=== PATIENT | female | born 1965 | race Caucasian/White ===

== ENCOUNTER 2017-07-28 13:18 | Emergency (ER) | payer BC ==
[2017-07-28 16:40] LABS: Hematocrit 38 % (35-47); Hemoglobin 12.1 g/dl (12.0-16.0); Mean Corpuscular HGB Conc 32 g/dl (31-36); Mean Corpuscular Hemoglobin 23 pg (27-31); Mean Corpuscular Volume 72 fL (80-97); Mean Platelet Volume 8 um3 (7.4-10.4); Platelet Count 198 10^3/ul (150-450); Red Cell Distribution Width 17 % (10.5-15); White Blood Count 13.9 10^3/ul (3.5-10.8)
[2017-07-28 16:52] LABS: INR 1.1 (0.77-1.02)
[2017-07-28 16:54] LABS: EGFR Non-African American 85.7 (>60)
[2017-07-28 17:33] LABS: Urine Appearance Clear; Urine Blood Negative (Negative); Urine Color Yellow; Urine Ketones Negative (Negative); Urine Protein 1+(30 mg/dL) (Negative); Urine Urobilinogen Positive (Negative)
[2017-07-28 18:04] LABS: Monocytes % 3 % (0-13)
--- NOTE | 2017-07-28 18:31 | RAD ---
Indication: Gastroesophageal reflux. Green emesis. Tobacco use. Comparison: December 08, 2016 chest radiograph and February 05, [address] Technique: RIGHT AP 1655 hours Report: Obesity limits image quality. Upper normal heart size. Prominent ill-defined central pulmonary vasculature and bilateral alveolar opacities and prominence of the interstitial markings. Grossly clear pleural spaces. Negative for pneumothorax. Negative for free air beneath the diaphragm. IMPRESSION: The constellation of findings favors cardiogenic pulmonary edema. Correlate with clinical assessment as bronchopneumonia could have a similar appearance.
[2017-07-28] MEDS ORDERED: Ondansetron ODT TAB* 4 MG SL PRN (19:30)
[2017-07-28] MEDS ORDERED: Al Hydrox/Mg Hydrox/Simet LIQ* 30 ML UDC PO ONE (19:30)
[2017-07-28] MEDS ORDERED: Lidocaine 2% VISCOUS* 15 ML UDC PO ONE (19:31)
[2017-07-28] MEDS ORDERED: SCOP/HYOS/ATR/PB(NF) 10 ML UDC PO ONE (19:31)
[2017-07-28] MEDS ORDERED: Ondansetron ODT TAB* 4 MG ONE (20:41)
[2017-07-28 21:37] VITALS: BP 173/81
--- NOTE | 2017-07-30 06:07 | ED ---
Bart Perez Gabriel, scribjoby for Yana Valenzuela MD on 07/28/17 at 1928 . GI/ HPI - HPI Summary HPI Summary: This patient is a 51 year old F presenting to [facility] accompanied by her brother with a chief complaint of GERD exacerbation that began 10 days ago. The patient rates the pain 2/10 in severity. Patient reports anxiety, green emesis, and HEAD. Patient denies difficulty breathing. The patient reports she has gas attacks. She started Prozac 2 weeks ago, takes Prilosec for GERD (BID), and takes a diuretic when she feels bloated. - History of Current Complaint Chief Complaint: EDGeneral Time Seen by Provider: 07/28/17 19:11 Stated Complaint: GENERAL ILLNESS Hx Obtained From: Patient Onset/Duration: Started Days Ago - 10, Still Present Timing: Constant Severity: Mild Current Severity: Mild Pain Intensity: 2 Associated Signs and Symptoms: Positive: Other: - anxiety, green emesis, and HEAD - Allergy/Home Medications Allergies/Adverse Reactions: Allergies Allergy/AdvReac Type Severity Reaction Status Date / Time Penicillins Allergy Severe Swelling Verified 02/04/15 21:47 PMH/Surg Hx/FS Hx/Imm Hx Endocrine/Hematology History: Reports: Hx Diabetes, Hx Thyroid Disease Cardiovascular History: Reports: Hx Congestive Heart Failure, Hx Hypertension - ON MEDICATION, Other Cardiovascular Problems/Disorders - hx of cardiomyopathy Respiratory History: Denies: Hx Asthma, Hx Chronic Obstructive Pulmonary Disease (COPD) GI History: Reports: Hx Gastroesophageal Reflux Disease Musculoskeletal History: Reports: Hx Arthritis - back, hands, feet Sensory History: Reports: Hx Contacts or Glasses Opthamlomology History: Reports: Hx Contacts or Glasses Infectious Disease History: No Infectious Disease History: Denies: Traveled Outside the [place] in Last 30 Days - Family History Known Family History: Positive: Cardiac Disease, Hypertension, Diabetes, Other - cancer Negative: Renal Disease, Seizure Disorder - Social History Alcohol Use: None Substance Use Type: Reports: None Smoking Status (MU): Former Smoker Amount Used/How Often: 1/2ppd Length of Time of Smoking/Using Tobacco: 17yrs total had stop period of time Have You Smoked in the Last Year: Yes Review of Systems Positive: Vomiting - that is green , Other - GERD Positive: Anxious All Other Systems Reviewed And Are Negative: Yes Physical Exam - Summary Physical Exam Summary: VITAL SIGNS: Reviewed. GENERAL: Patient is a morbidly obese female who is lying comfortable in the stretcher. Patient is not in any acute respiratory distress. HEAD AND FACE: No signs of trauma. No ecchymosis, hematomas or skull depressions. No sinus tenderness. EYES: PERRLA, EOMI x 2, No injected conjunctiva, no nystagmus. EARS: Hearing grossly intact. Ear canals and tympanic membranes are within normal limits. MOUTH: Oropharynx within normal limits. NECK: Supple, trachea is midline, no adenopathy, no JVD, no carotid bruit, no c- spine tenderness, neck with full ROM. CHEST: Symmetric, no tenderness at palpation LUNGS: decreased breath sounds bilaterally CVS: Regular rate and rhythm, S1 and S2 present, no murmurs or gallops appreciated. ABDOMEN: Soft with epigastric tenderness. No signs of distention. No rebound no guarding, and no masses palpated. Bowel sounds are normal. EXTREMITIES: FROM in all major joints, no edema, no cyanosis or clubbing. NEURO: Alert and oriented x 3. No acute neurological deficits. Speech is normal and follows commands. SKIN: Dry and warm Triage Information Reviewed: Yes Vital Signs On Initial Exam: Initial Vitals Temp Pulse Resp BP Pulse Ox 97.8 F 82 20 207/114 96 07/28/17 13:20 07/28/17 13:20 07/28/17 13:20 07/28/17 13:20 07/28/17 13:20 Vital Signs Reviewed: Yes - [place] Coma Scale Coma Scale Total: 15 Diagnostics - Vital Signs Vital Signs Temp Pulse Resp BP Pulse Ox 07/28/17 19:00 71 20 167/74 95 07/28/17 18:30 74 24 167/77 93 07/28/17 18:00 70 13 179/79 94 07/28/17 17:20 71 15 188/92 95 07/28/17 15:10 98.7 F 72 18 175/87 96 07/28/17 13:20 97.8 F 82 20 207/114 96 - Laboratory Lab Results: Lab Results 07/28/17 07/28/17 07/28/17 Range/Units 16:25 16:25 16:25 WBC (3.5-10.8) 10^3/ul RBC (4.0-5.4) 10^6/ul Hgb (12.0-16.0) g/dl Hct (35-47) % MCV (80-97) fL MCH (27-31) pg MCHC (31-36) g/dl RDW (10.5-15) % Plt Count (150-450) 10^3/ul MPV (7.4-10.4) um3 Immature Gran % (0-9) % Neutrophils % (38-83) % Band Neutrophils % (0-8) % Lymphocytes % (25-47) % Monocytes % (0-13) % Abs Neuts (Manual) (1.5-7.7) 10^3/ul Normal RBC Morphology Microcytosis Macrocytosis INR (Anticoag Therapy) 1.10 H (0.77-1.02) APTT 30.5 (26.0-36.3) seconds Sodium 135 (133-145) mmol/L Potassium 4.0 (3.5-5.0) mmol/L Chloride 99 L (101-111) mmol/L Carbon Dioxide 30 (22-32) mmol/L Anion Gap 6 (2-11) mmol/L BUN 10 (6-24) mg/dL Creatinine 0.72 (0.51-0.95) mg/dL Est GFR ( Amer) 110.3 (>60) Est GFR (Non-Af Amer) 85.7 (>60) BUN/Creatinine Ratio 13.9 (8-20) Glucose 149 H (70-100) mg/dL Lactic Acid (0.5-2.0) mmol/L Calcium 9.3 (8.6-10.3) mg/dL Magnesium 2.4 (1.9-2.7) mg/dL Total Bilirubin 1.70 H (0.2-1.0) mg/dL AST 19 (13-39) U/L ALT 14 (7-52) U/L Alkaline Phosphatase 67 (34-104) U/L Total Creatine Kinase 65 (10-223) U/L Troponin I 0.00 (<0.04) ng/mL C-Reactive Protein 24.24 H (< 5.00) mg/L B-Natriuretic Peptide 370 H ( - 100) pg/mL Total Protein 6.9 (6.4-8.9) g/dL Albumin 3.9 (3.2-5.2) g/dL Globulin 3.0 (2-4) g/dL Albumin/Globulin Ratio 1.3 (1-3) Amylase 19 L (29-103) U/L Lipase 65 (11.0-82.0) U/L Urine Color Urine Appearance Urine pH (5-9) Ur Specific Ceres (1.010-1.030) Urine Protein (Negative) Urine Ketones (Negative) Urine Blood (Negative) Urine Nitrate (Negative) Urine Bilirubin (Negative) Urine Urobilinogen (Negative) Ur Leukocyte Esterase (Negative) Urine WBC (Auto) (Absent) Urine RBC (Auto) (Absent) Ur Squamous Epith Cells (Absent) Urine Bacteria (Absent) Urine Glucose (Negative) 07/28/17 07/28/17 07/28/17 Range/Units 16:25 16:25 17:10 WBC 13.9 H (3.5-10.8) 10^3/ul RBC 5.30 (4.0-5.4) 10^6/ul Hgb 12.1 (12.0-16.0) g/dl Hct 38 (35-47) % MCV 72 L (80-97) fL MCH 23 L (27-31) pg MCHC 32 (31-36) g/dl RDW 17 H (10.5-15) % Plt Count 198 (150-450) 10^3/ul MPV 8 (7.4-10.4) um3 Immature Gran % 9 (0-9) % Neutrophils % 76 (38-83) % Band Neutrophils % 9 H (0-8) % Lymphocytes % 12 L (25-47) % Monocytes % 3 (0-13) % Abs Neuts (Manual) 11.8 H (1.5-7.7) 10^3/ul Normal RBC Morphology Not Reportable Microcytosis 1+ Macrocytosis 1+ INR (Anticoag Therapy) (0.77-1.02) APTT (26.0-36.3) seconds Sodium (133-145) mmol/L Potassium (3.5-5.0) mmol/L Chloride (101-111) mmol/L Carbon Dioxide (22-32) mmol/L Anion Gap (2-11) mmol/L BUN (6-24) mg/dL Creatinine (0.51-0.95) mg/dL Est GFR ( Amer) (>60) Est GFR (Non-Af Amer) (>60) BUN/Creatinine Ratio (8-20) Glucose (70-100) mg/dL Lactic Acid 0.9 (0.5-2.0) mmol/L Calcium (8.6-10.3) mg/dL Magnesium (1.9-2.7) mg/dL Total Bilirubin (0.2-1.0) mg/dL AST (13-39) U/L ALT (7-52) U/L Alkaline Phosphatase (34-104) U/L Total Creatine Kinase (10-223) U/L Troponin I (<0.04) ng/mL C-Reactive Protein (< 5.00) mg/L B-Natriuretic Peptide ( - 100) pg/mL Total Protein (6.4-8.9) g/dL Albumin (3.2-5.2) g/dL Globulin (2-4) g/dL Albumin/Globulin Ratio (1-3) Amylase (29-103) U/L Lipase (11.0-82.0) U/L Urine Color Yellow Urine Appearance Clear Urine pH 7.0 (5-9) Ur Specific Ceres 1.010 (1.010-1.030) Urine Protein 1+(30 mg/dl) H (Negative) Urine Ketones Negative (Negative) Urine Blood Negative (Negative) Urine Nitrate Negative (Negative) Urine Bilirubin Negative (Negative) Urine Urobilinogen Positive H (Negative) Ur Leukocyte Esterase Negative (Negative) Urine WBC (Auto) Trace(0-5/hpf) (Absent) Urine RBC (Auto) Trace(0-2/hpf) (Absent) Ur Squamous Epith Cells Present H (Absent) Urine Bacteria Absent (Absent) Urine Glucose Negative (Negative) Result Diagrams: 07/28/17 16:25 07/28/17 16:25 Lab Statement: Any lab studies that have been ordered have been reviewed, and results considered in the medical decision making process. - Radiology CXR Radiology Interpretation Completed By: Radiologist - The constellation of findings favors cardiogenic pulmonary edema. Correlate with clinical assessment as bronchopneumonia could have a similar appearance. ED physician has reviewed this radiology report. - EKG 16:32 Cardiac Rate: NL EKG Rhythm: Sinus Rhythm - at 77 BPM EKG Interpretation: Normal axis. Normal interval. No ischemic changes. Q waves in inferior lead Re-Evaluation - Re-Evaluation First Eval Re-Evaluation Time: 20:49 Change: Unchanged - Discussed CXR, she does not want to be admitted. She is on a diuretic she will go home and take follow up with PCP fabian and will get a cardiology consult for echo. GIGU Course/Dx - Course Assessment/Plan: This patient is a 51 year old F presenting to [facility] accompanied by her brother with a chief complaint of GERD exacerbation that began 10 days ago. The patient rates the pain 2/10 in severity. Patient reports anxiety, green emesis, and HEAD. Patient denies difficulty breathing. The patient reports she has gas attacks. She started Prozac 2 weeks ago, takes Prilosec for GERD (BID), and takes a diuretic when she feels bloated. An EKG reveals Normal axis. Normal interval. No ischemic changes. CXR reveals, per radiologist, The constellation of findings favors cardiogenic pulmonary edema. Correlate. with clinical assessment as bronchopneumonia could have a similar appearance. Test results with no significant abnormalities. In the ED course the patient was given Maalox, Zofran, and xylocaine. Patient will be discharged with prescription for Zofran and follow up from PCP. The patient is agreeable with this plan. - Diagnoses Provider Diagnoses: GERD (gastroesophageal reflux disease) Discharge - Discharge Plan Condition: Stable Disposition: HOME Prescriptions: Ondansetron [Zofran Odt] 8 mg PO TID PRN #20 tab PRN Reason: Nausea/Vomiting Ondansetron HCl [Zofran 8 MG TAB] 8 mg PO TID PRN #20 tab PRN Reason: Nausea/Vomiting Patient Education Materials: Ondansetron (By mouth), Gastroesophageal Reflux Disease (ED) Referrals: Andrew Alba MD [Primary Care Provider] - 2 Days Additional Instructions: Follow up with Dr. Alba and he should refer you to a engineer remote control diesel for an echo. RETURN TO EMERGENCY DEPARTMENT FOR ANY NEW OR WORSENING SYMPTOMS The documentation as recorded by the Bart sanderson Gabriel accurately reflects the service I personally performed and the decisions made by me, Yana Valenzuela MD.
== END 2017-07-28 21:36 | disposition home or self-care (01) ==
LOC: ED 13:18
DX: K21.9 Gastro-esophageal reflux disease without esophagitis (principal); R11.10 Vomiting, unspecified; F41.9 Anxiety disorder, unspecified; Z87.891 Personal history of nicotine dependence
CPT/HCPCS: 36415; 71045; 80053; 81003; 81015; 82150; 82550; 83605; 83690; 83735; 83880; 84484; 85025; 85610; 85730; 86140; 93005; 99283; A9270-GY

== ENCOUNTER 2017-12-03 10:26 | Inpatient (IN) | payer BC ==
[2017-12-03 12:02] LABS: ABS Basophils 0.1 10^3/ul (0-0.2); ABS Eosinophils 0.1 10^3/ul (0-0.6); ABS Monocytes 0.6 10^3/ul (0-0.8); ABS Neutrophils 15.7 10^3/ul (1.5-7.7); ABS Nucleated RBC 0 10^3/ul; Eosinophil % 0.6 % (0-6); Hematocrit 37 % (35-47); Hemoglobin 12.2 g/dl (12.0-16.0); Lymphocyte % 5.6 % (25-47); Mean Corpuscular HGB Conc 33 g/dl (31-36); Mean Corpuscular Hemoglobin 26 pg (27-31); Mean Corpuscular Volume 79 fL (80-97); Mean Platelet Volume 8.6 um3 (7.4-10.4); Nucleated Red Blood Cells % 0; Platelet Count 205 10^3/ul (150-450); Red Blood Count 4.72 10^6/ul (4.0-5.4); Red Cell Distribution Width 16 % (10.5-15); White Blood Count 17.4 10^3/ul (3.5-10.8)
[2017-12-03] MEDS ORDERED: Ondansetron INJ* 2 MG/ML VIAL IV ONE (12:04)
[2017-12-03] MEDS ORDERED: Morphine INJ* 10 MG/ML 1 ML CARPUJECT IV ONE (12:04)
[2017-12-03 12:20] LABS: EGFR Non-African American 78.2 (>60)
[2017-12-03] MEDS ORDERED: Morphine VIAL* 4 MG/ML VIAL (1 ml vial) IV ONE (12:26)
[2017-12-03] MEDS ORDERED: Ondansetron ODT TAB* 4 MG ONE (12:26)
[2017-12-03] MEDS ORDERED: Ondansetron ODT TAB* 4 MG PO ONE (12:55)
--- NOTE | 2017-12-03 13:12 | RAD ---
CLINICAL HISTORY: Right flank pain in a patient with a history of renal stones COMPARISON: Most recent CT examination is dated February 05, 2015 TECHNIQUE: Noncontrast CT examination of the abdomen and pelvis from the lung bases through the initial tuberosities. FINDINGS: VISUALIZED LUNG BASES: The visualized lung bases are grossly clear. There is no pleural effusion. ABDOMEN AND PELVIS: Evaluation of the solid organs and vasculature is limited without intravenous contrast. Overlying the right anterior abdominal wall there is appearance of a lipoma measuring up to 5.4 x 14 cm in the axial plane with multiple foci of coarse calcification. A fat-containing umbilical hernia is again seen. The liver is homogenously hypodense relative to the spleen. The liver measures 20 cm in greatest cephalocaudal dimension, slightly less than the previous CT examination. The spleen, pancreas and adrenal glands are grossly normal in appearance. The gallbladder is normal. The left kidney normal in appearance without focal mass, calcification or signs of hydronephrosis. Right kidney exhibits a mild degree of hydronephrosis. There are no obstructing calculi identified in the right ureter or in the urinary bladder. Evaluation of the gastrointestinal tract is limited without oral contrast. The small and large bowel are not distended.The patient's normal appendix is identified in the right lower quadrant measuring 5 mm in diameter (coronal image 52 and axial image 131) with gas in the lumen. There are rectosigmoid diverticula but no focal inflammatory change characteristic of diverticulitis. There is no gross retroperitoneal or mesenteric lymphadenopathy. The pelvic viscera is normal in appearance. The coarsely calcified abdominal aorta and iliac arteries are normal in course and diameter. Degenerative changes include multilevel loss of intervertebral disc height involving the lower thoracic and lumbar spine.There are no sinister bone lesions. IMPRESSION: 1. There is mild hydronephrosis of the right kidney with mild perinephric stranding but no obstructing renal calculi is identified. Images could be seen in the setting of recent passage of renal calculus. 2. Diverticulosis without focal inflammatory changes characteristic of diverticulitis. 3. Likely hepatic steatosis with mild splenomegaly. 4. Additional chronic and degenerative changes described in body the report unlikely to be directly related to the patient's current presentation.
[2017-12-03] MEDS ORDERED: cefTRIAXone(*) 1 GM in NS 0.9% 50 ML* 50 ML IVPB ONE (13:44)
[2017-12-03 14:05] LABS: Urine Appearance Cloudy; Urine Blood 3+ (Negative); Urine Color Amber; Urine Ketones 1+ (Negative); Urine Protein 1+(30 mg/dL) (Negative); Urine Specific Gravity 1.016 (1.010-1.030); Urine Urobilinogen Negative (Negative)
[2017-12-03] MEDS ORDERED: Morphine VIAL* 4 MG/ML VIAL (1 ml vial) IV PRN (16:46)
[2017-12-03] MEDS ORDERED: PROCHLORPERAZINE INJ 5 MG/ML 2 ML VIAL IV PRN (16:46)
[2017-12-03] MEDS ORDERED: Enoxaparin(*) 40 MG/0.4 ML SYR SUBCUT SCH (17:00)
[2017-12-03] MEDS ORDERED: Dextrose 50% Syringe 50 ML* 25 GM/50 ML SYRINGE IV PUSH PRN (17:30)
[2017-12-03] MEDS: Carvedilol TAB* 25 MG PO SCH ×2 (18:11→20:55)
[2017-12-03] MEDS: Ticagrelor* 90 MG TAB PO SCH ×2 (18:11→20:55)
[2017-12-03] MEDS: NS 0.9% 1000 ML* 1,000 ML IV SCH (18:11)
[2017-12-03] MEDS: Acetaminophen TAB* 325 MG PO PRN (21:09)
[2017-12-03] MEDS: Insulin LISPRO* 1 UNITS UNIT SUBCUT SCH (21:10)
--- NOTE | 2017-12-04 00:03 | HP ---
CC: Dr. Alba; Dr. Salmeron * HISTORY AND PHYSICAL: DATE OF ADMISSION: 12/03/17 TIME OF EVALUATION: 3:45 p.m. PRIMARY CARE PROVIDER: Dr. Alba. LOGISTICS LOSS PREVENTION MANAGER: Dr. Salmeron. CHIEF COMPLAINT: Right flank pain. HISTORY OF PRESENT ILLNESS: Ms. Shea is a 51-year-old lady with a past medical history of morbid obesity with a BMI of 54, diabetes, hypertension, history of viral cardiomyopathy, GERD, coronary artery disease status post stent who presents to the emergency room with complaints of right flank pain. She states that 5 days ago she started to have dysuria and urinary frequency. She suspected that she had a urinary tract infection, but did not seek medical attention during the weekend. On Thursday, she started to have intermittent hematuria and decided to see her primary care provider. In the meantime, she developed right flank pain with no radiation, described as [id number], associated with nausea and vomiting. She was seen at her primary care provider' s office, had a urine test performed and was diagnosed with urinary tract infection. Nitrofurantoin was prescribed and the patient did not chart picker the medication the same day. She started this antibiotic yesterday and took 2 doses with no significant improvement what prompted her visit to the emergency room today. She denies fever, chills, chest pain, palpitations, shortness of breath, or any other complaints not described above. She denies any prior history of nephrolithiasis, but has had uncomplicated urinary tract infections in the past. PAST MEDICAL HISTORY: 1. Morbid obesity with a BMI of 54. 2. Coronary artery disease. As per the patient's report, she had a stent placed to the LAD in August [address] Núñez at [facility]. She states that her RCA was totally occluded and no intervention was performed. She has been on aspirin and Brilinta since. 3. Type 2 diabetes. 4. Hypertension. 5. Hyperlipidemia. 6. GERD. 7. Prior history of viral cardiomyopathy. MEDICATION LIST: 1. Amlodipine 10 mg p.o. daily. 2. Aspirin 81 mg p.o. daily. 3. Atorvastatin 10 mg p.o. daily. 4. Bumetanide 1 mg p.o. daily. 5. Carvedilol 25 mg p.o. b.i.d. 6. Glyburide/metformin 2.5/500 one tablet p.o. b.i.d. 7. Levothyroxine 100 mcg p.o. daily. 8. Lisinopril 40 mg p.o. daily. 9. Nitrofurantoin 100 mg p.o. b.i.d. 10. Omeprazole 20 mg p.o. daily. 11. Brilinta 90 mg p.o. b.i.d. ALLERGIES: With PENICILLINS, the patient described reaction of swelling and with CLARITHROMYCIN, the patient has diarrhea. She received ceftriaxone in the emergency room with no untoward reaction. FAMILY HISTORY: Significant for strong family history of coronary artery disease. SOCIAL HISTORY: The patient has a history of tobacco abuse, half-a-pack of cigarettes and she is trying to quit. No history of alcohol or drug use. Surrogate decision maker is her brother, Emeka Shea, phone number [phone]. REVIEW OF SYSTEMS: A 14-point review of systems was performed and all the pertinent negative and positive findings are in the HPI. PHYSICAL EXAMINATION GENERAL: The patient is a pleasant, middle-aged morbidly obese lady, sitting up in a chair, in no acute distress. VITAL SIGNS: Temperature 97.0, heart rate is 78, respiratory rate is 16, oxygen saturation is 99% on room air, blood pressure is 168/91. HEENT: Pupils are equal. Moist mucous membranes. CHEST: Breath sounds present bilaterally with no added sounds. CVS: Normal S1, S2. Regular rate and rhythm. ABDOMEN: The patient was able to lie down on the ED stretcher, but abdominal examination is limited due to body habitus. There is no significant tenderness on palpation. Bowel sounds are present and there is right flank tenderness on percussion. EXTREMITIES: Mild bilateral lower extremity pitting edema. NEURO: She is alert, oriented x3. Able to move all 4 extremities. LABORATORY AND IMAGING DATA: The patient had a CBC that showed a WBC of 17.4, hemoglobin of 12.2, hematocrit of 37, platelets of 205, 90% neutrophils. Chemistry showed a sodium of 136, potassium of 4, chloride of 100, bicarb of 24 , BUN of 17, anion gap of 12, glucose of 186, calcium of 9.6, lactic acid of 1.4. LFTs are normal except for slight elevation of total bilirubin at 1.4. CRP is 43. Urinalysis showed 1+ protein, 1+ ketones, 3+ blood, 3+ LE, 3+ wbc's, 3+ rbc's, squamous epithelial cells are present, and 1+ urine bacteria. CT of the abdomen and pelvis showed mild hydronephrosis of the right kidney with mild perinephric stranding, but no obstructing renal calculi is identified. Images could be seen in the setting of recent passage of renal calculus. Diverticulosis without focal inflammatory changes characteristic of diverticulitis. Likely hepatic steatosis with mild splenomegaly. ASSESSMENT AND PLAN: Ms. Shea is a 51-year-old lady with a past medical history of morbid obesity, coronary artery disease, status post stent, hypertension, hyperlipidemia, type 2 diabetes, who presents to the emergency room with complaints of flank pain, dysuria and urinary frequency, found to have pyelonephritis. 1. Sepsis. The patient has leukocytosis and I believe she is not tachycardic at this time because she is on a beta-cliff. Source is pyelonephritis. There is no evidence of severe sepsis or septic shock at this time. 2. Pyelonephritis. We are going to obtain the urine culture the patient had done as an outpatient. I suspect the urine culture sent here will probably be negative as she was already taking antibiotics as an outpatient. In the meantime, she will be continued on IV fluids and ceftriaxone. She will receive symptomatic treatment for her pain and nausea. 3. Hypertension. I am going to continue her amlodipine, carvedilol, and lisinopril with holding parameters. 4. Coronary artery disease, appears to be stable. I am going to obtain records from [facility] regarding her cardiac cath and last visit with Dr. Salmeron. 5. Type 2 diabetes. I am going to hold her glyburide/metformin in the setting of acute infection. She is going to have fingersticks a.c. and h.s. with a lispro sliding scale and she may require low dose Lantus depending on her glucose. 6. Hyperlipidemia. Continue atorvastatin. 7. DVT prophylaxis: The patient has a score of 2 and she will be started on subcutaneous heparin. 8. Code status is full. TIME SPENT: Approximately 50 minutes was spent with the patient's interview, medical records review, physical examination to complete this admission, more than half of this time was spent [id number] with the patient and coordination of care. [id number]/[facility] #: [id number] JENNI
[2017-12-04] MEDS: NS 0.9% 1000 ML* 1,000 ML IV SCH (04:12)
[2017-12-04] MEDS ORDERED: Levothyroxine TAB* 100 MCG TAB PO SCH (06:00)
[2017-12-04 06:31] LABS: ABS Basophils 0.1 10^3/ul (0-0.2); ABS Eosinophils 0.2 10^3/ul (0-0.6); ABS Lymphocytes 2.2 10^3/ul (1.0-4.8); ABS Monocytes 0.7 10^3/ul (0-0.8); ABS Neutrophils 8.3 10^3/ul (1.5-7.7); ABS Nucleated RBC 0 10^3/ul; Eosinophil % 2.1 % (0-6); Hematocrit 34 % (35-47); Hemoglobin 11.2 g/dl (12.0-16.0); Mean Corpuscular HGB Conc 33 g/dl (31-36); Mean Corpuscular Hemoglobin 26 pg (27-31); Mean Corpuscular Volume 79 fL (80-97); Mean Platelet Volume 8.7 um3 (7.4-10.4); Nucleated Red Blood Cells % 0; Platelet Count 184 10^3/ul (150-450); Red Blood Count 4.25 10^6/ul (4.0-5.4); Red Cell Distribution Width 16 % (10.5-15); White Blood Count 11.4 10^3/ul (3.5-10.8)
[2017-12-04 06:39] LABS: EGFR Non-African American 87.1 (>60)
--- NOTE | 2017-12-04 07:40 | ED ---
Bart Perez Gabriel, scribed for Shorty Thacker MD on 12/03/17 at 1157 . Abdominal Pain/Male - HPI Summary HPI Summary: This patient is a 51 year old F presenting to [facility] with a chief complaint of right flank pain that began yesterday morning. The patient rates the pain 8/10 in severity and states it radiates into her ABD. Patient reports nausea, hematuria, dysuria, diaphoresis, and chills. Pt is on abx for her current UTI, she states the pain feels similar to a prior kidney stone. Cardiac stent placed aug 2017 - History of Current Complaint Chief Complaint: EDFlankPain Stated Complaint: N/V,RT FLANK PAIN Time Seen by Provider: 12/03/17 11:28 Hx Obtained From: Patient Onset/Duration: Still Present Timing: Constant Severity Initially: Severe Severity Currently: Severe Pain Intensity: 8 Pain Scale Used: 0-10 Numeric Location: Flank - r Radiates: No Associated Signs And Symptoms: Positive: Nausea - Allergies/Home Medications Allergies/Adverse Reactions: Allergies Allergy/AdvReac Type Severity Reaction Status Date / Time clarithromycin Allergy Diarrhea Verified 12/03/17 11:42 penicillin G Allergy Swelling Verified 12/03/17 11:42 Home Medications: Home Medications Aspirin EC TAB* [Ecotrin EC Low Dose 81 MG*] 81 mg PO QAM 12/03/17 [History Confirmed 12/03/17] Atorvastatin* [Lipitor*] 10 mg PO DAILY 12/03/17 [History Confirmed 12/03/17] Bumetanide TAB* [Bumex 1 MG TAB*] 1 mg PO DAILY 12/03/17 [History Confirmed 05/13] Carvedilol TAB* [Coreg TAB*] 25 mg PO BID 12/03/17 [History Confirmed 12/03/17] Glyburid/Metformin 2.5/500(NF) [Glucovance (NF)] 1 tab PO BID 12/03/17 [History Confirmed 12/03/17] Levothyroxine TAB* [Synthroid TAB*] 100 mcg PO DAILY 12/03/17 [History Confirmed 12/03/17] Lisinopril TAB* [Prinivil TAB*] 40 mg PO DAILY 12/03/17 [History Confirmed 12/03] Nitrofurantoin Monohyd/M-Cryst [Macrobid 100 mg Capsule] 100 mg PO BID 12/03/17 [History Confirmed 12/03/17] Omeprazole CAP* [Prilosec CAP* 20 MG] 20 mg PO DAILY 12/03/17 [History Confirmed 12/03/17] Ticagrelor* [Brilinta*] 90 mg PO BID 12/03/17 [History Confirmed 12/03/17] amLODIPine TAB* [Norvasc 5 mg TAB*] 10 mg PO DAILY 12/03/17 [History Confirmed 12/03/17] PMH/Surg Hx/FS Hx/Imm Hx Endocrine/Hematology History: Reports: Hx Diabetes, Hx Thyroid Disease Cardiovascular History: Reports: Hx Congestive Heart Failure, Hx Hypertension - ON MEDICATION, Other Cardiovascular Problems/Disorders - hx of cardiomyopathy Respiratory History: Denies: Hx Asthma, Hx Chronic Obstructive Pulmonary Disease (COPD) GI History: Reports: Hx Gastroesophageal Reflux Disease Musculoskeletal History: Reports: Hx Arthritis - back, hands, feet Sensory History: Reports: Hx Contacts or Glasses Opthamlomology History: Reports: Hx Contacts or Glasses Infectious Disease History: No Infectious Disease History: Denies: Traveled Outside the [place] in Last 30 Days - Family History Known Family History: Positive: Cardiac Disease, Hypertension, Diabetes, Other - cancer Negative: Renal Disease, Seizure Disorder - Social History Alcohol Use: None Substance Use Type: Reports: None Smoking Status (MU): Former Smoker Amount Used/How Often: 1/2ppd Length of Time of Smoking/Using Tobacco: 17yrs total had stop period of time Have You Smoked in the Last Year: Yes Review of Systems Positive: Chills, Skin Diaphoresis. Negative: Fever Negative: Erythema Negative: Sore Throat Negative: Chest Pain Negative: Shortness Of Breath, Cough Positive: Abdominal Pain, Nausea Positive: dysuria, flank pain - r, hematuria Negative: Myalgia, Edema Negative: Rash Neurological: Negative - dizziness All Other Systems Reviewed And Are Negative: Yes Physical Exam - Summary Physical Exam Summary: Constitutional: Well-developed, obese, in moderate pain distress Skin: Warm, Dry HENT: Normocephalic; Atraumatic Eyes: Conjunctiva normal Neck: Musculoskeletal ROM normal neck. (-) JVD, (-) Stridor, (-) Tracheal deviation Cardio: Rhythm regular, rate normal, Heart sounds normal; Intact distal pulses; The pedal pulses are 2+ and symmetric. Radial pulses are 2+ and symmetric. (-) Murmur Pulmonary/Chest wall: Effort normal. (-) Respiratory distress, (-) Wheezes, (-) Rales Abd: Soft, (-) Tenderness, (-) Distension, (-) Guarding, (-) Rebound Musculoskeletal: (-) Edema Lymph: (-) Cervical adenopathy Neuro: Alert, Oriented x3 Psych: Mood and affect Normal Triage Information Reviewed: Yes Vital Signs On Initial Exam: Initial Vitals Temp Pulse Resp BP Pulse Ox 97 F 78 16 168/91 99 12/03/17 10:28 12/03/17 10:28 12/03/17 10:28 12/03/17 10:28 12/03/17 10:28 Vital Signs Reviewed: Yes Diagnostics - Vital Signs Vital Signs Temp Pulse Resp BP Pulse Ox 12/03/17 10:28 97 F 78 16 168/91 99 - Laboratory Result Diagrams: 12/03/17 11:46 12/03/17 11:39 Lab Statement: Any lab studies that have been ordered have been reviewed, and results considered in the medical decision making process. - Radiology CT ABD/Pelvis Radiology Interpretation Completed By: Radiologist - 1. There is mild hydronephrosis of the right kidney with mild perinephric stranding but no obstructing renal calculi is identified. Images could be seen in the setting of recent passage of renal calculus. 2. Diverticulosis without focal inflammatory changes characteristic of diverticulitis. 3. Likely hepatic steatosis with mild splenomegaly. 4. Additional chronic and degenerative changes described in body the report unlikely to be directly related to the patient's current presentation. ED physician has reviewed this radiology report. Re-Evaluation - Re-Evaluation First Eval Re-Evaluation Time: 15:32 Change: Unchanged Comment: I updated the patient with the plan of care. Abdominal Pain Fem Course/Dx - Course Assessment/Plan: This patient is a 51 year old F presenting to [facility] with a chief complaint of right flank pain that began yesterday morning. The patient rates the pain 8/10 in severity and states it radiates into her ABD. Patient reports nausea, hematuria, dysuria, diaphoresis, and chills. Pt is on abx for her current UTI, she states the pain feels similar to a prior kidney stone. Cardiac stent placed aug 2017. CT ABD/Pelvis reveals, per radiologist, 1. There is mild hydronephrosis of the right kidney with mild perinephric stranding but no. obstructing renal calculi is identified. Images could be seen in the setting of recent. passage of renal calculus. 2. Diverticulosis without focal inflammatory changes characteristic of diverticulitis. 3. Likely hepatic steatosis with mild splenomegaly. 4. Additional chronic and degenerative changes described in body the report unlikely to be. directly related to the patient's current presentation. Test results with no significant abnormalities except for a glucose of 186 and WBC 17.4. In the ED course the patient was given zofran and morphine. We discussed patient care with Dr. Geiger and they agreed to admit the patient. The patient will be admitted because her outpatient treatment is failing due to her DM. Patient will be admitted. The patient is agreeable with this plan. - Diagnoses Provider Diagnoses: Pyelonephritis - Provider Notifications Discussed Care Of Patient With: Abebe Geiger Time Discussed With Above Provider: 14:45 Instructed by Provider To: Admit As Inpatient Discharge - Sign-Out/Discharge Documenting (check all that apply): Discharge/Admit/Transfer - Discharge Plan Condition: Fair Disposition: ADMITTED TO [facility] Referrals: Andrew Alba MD [Primary Care Provider] - The documentation as recorded by the Bart sanderson Gabriel accurately reflects the service I personally performed and the decisions made by , Shorty Thacker MD.
[2017-12-04] MEDS: Acetaminophen TAB* 325 MG PO PRN (07:59)
[2017-12-04] MEDS: Carvedilol TAB* 25 MG PO SCH (08:11)
[2017-12-04] MEDS: Ticagrelor* 90 MG TAB PO SCH (08:11)
[2017-12-04] MEDS ORDERED: Pneumococcal *Vac Polyvalent 0.5 ML VIAL IM ONE (09:00)
[2017-12-04] MEDS ORDERED: Omeprazole CAP* 20 MG PO SCH (09:00)
[2017-12-04] MEDS ORDERED: Aspirin EC TAB* 81 MG TAB.EC PO SCH (09:00)
[2017-12-04] MEDS ORDERED: amLODIPine TAB* 5 MG PO SCH (09:00)
[2017-12-04] MEDS ORDERED: Atorvastatin* 10 MG TAB PO SCH (09:00)
[2017-12-04] MEDS ORDERED: Lisinopril TAB* 10 MG PO SCH (09:00)
[2017-12-04] MEDS: Insulin LISPRO* 1 UNITS UNIT SUBCUT SCH ×2 (09:26→13:21)
[2017-12-04 12:01] VITALS: BP 103/53
[2017-12-04] MEDS ORDERED: cefTRIAXone(*) 1 GM in NS 0.9% 50 ML* 50 ML IVPB SCH (15:00)
--- NOTE | 2017-12-05 08:55 | DS ---
CC: Dr. Alba; Dr. Salmeron DISCHARGE SUMMARY: DATE OF ADMISSION: 12/03/17 DATE OF DISCHARGE: 12/04/17 PRIMARY CARE PROVIDER: Dr. Alba. DISTRIBUTION COORDINATOR: Dr. Salmeron. DISCHARGE DIAGNOSES: 1. Sepsis. 2. Pyelonephritis. SECONDARY DIAGNOSES: 1. Morbid obesity with a BMI of 54. 2. Coronary artery disease, status post cardiac cath in August 2017 with complete occlusion of the RCA and 85% LAD lesion, status post drug-eluting stent, on aspirin and Brilinta. 3. Type 2 diabetes. 4. Hypertension. 5. Hyperlipidemia. 6. Gastroesophageal reflux disease. 7. 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 MEDICATIONS AT THE TIME OF DISCHARGE: 1. Bumetanide 1 mg p.o. daily. 2. Omeprazole 20 mg p.o. daily. 3. Lisinopril 40 mg p.o. daily. 4. Levothyroxine 100 mcg p.o. daily. 5. Carvedilol 25 mg p.o. b.i.d. 6. Amlodipine 10 mg p.o. daily. 7. Ticagrelor 90 mg p.o. b.i.d. 8. Glyburide/metformin 2.5/500 one tab p.o. b.i.d. 9. Atorvastatin 10 mg p.o. daily. 10. Aspirin 81 mg p.o. q.a.m. New medications: 1. Ciprofloxacin 500 mg p.o. q.12 hours for 10 days more. 2. Tylenol 650 mg p.o. q.6 hours p.r.n. pain or fever. HOSPITAL COURSE: Ms. Shea is a 51-year-old lady with past medical history as stated above that pr esents to the emergency room with complaints of right flank pain. For more details about her present ation, I refer you to her history and physical. The patient was admitted with an impression of sepsis secondary to pyelonephritis. CT of the abdomen and pelvis without contrast showed mild hydronephrosis of the right kidney with mild perinephric stra nding, but no obstructing renal calculi was identified. Images could be seen in the setting of recen t passage of renal calculus. Urinalysis was abnormal and urine culture done in our facility is growi ng E. coli. Urine culture done at [place] also grew E. coli and this was multi-sensitive, so she is being discharged on ciprofloxacin. The patient had significant improvement of her symptoms. Her leukocytosis went down from 17 to 11 an d she is feeling well enough to request discharge. She will be discharged home today to follow up with Dr. Alba next week. PHYSICAL EXAMINATION: Vital Signs: Temperature 97.7, heart rate 59, respiratory rate 18, oxygen sat uration 95% on room air, blood pressure 103/53. General: The patient is a pleasant, morbidly obese, middle-aged lady, sitting up in bed, in no acute distress. CVS: Normal S1, S2. Regular rate and r hythm. Chest: Breath sounds present bilaterally with no added sounds. Abdomen: Obese. Bowel soun ds are present and exam is limited due to body habitus. There is mild right CVA tenderness, improved from my examination yesterday. Neuro: She is alert and oriented x3. Able to move all 4 extremitie s. DIET: Heart-healthy consistent carb diet. ACTIVITY: As tolerated. DISPOSITION: To home. STATUS WHILE IN THE HOSPITAL: Inpatient. Please keep in mind, this is a summarized version of this p atient's hospital stay. If you need more information, please feel free to call me at [phone] or please obtain the full medical records. TIME SPENT: Approximately 45 minutes were spent to complete this discharge. [id number]/[facility] #: [id number]
== END 2017-12-04 14:35 | disposition home or self-care (01) | DRG 720 ==
LOC: ED 10:26 → MED 16:14
PROVIDERS: ADMIT Internal Medicine; ATTEND Internal Medicine
DX: A41.9 Sepsis, unspecified organism (principal); N12 Tubulo-interstitial nephritis, not specified as acute or chronic; N13.30 Unspecified hydronephrosis; Z68.43 Body mass index [BMI] 50.0-59.9, adult; E66.01 Morbid (severe) obesity due to excess calories; I25.10 Atherosclerotic heart disease of native coronary artery without angina pectoris; E11.9 Type 2 diabetes mellitus without complications; E78.5 Hyperlipidemia, unspecified; I50.9 Heart failure, unspecified; I11.0 Hypertensive heart disease with heart failure; K21.9 Gastro-esophageal reflux disease without esophagitis; B33.24 Viral cardiomyopathy; B96.20 Unspecified Escherichia coli [E. coli] as the cause of diseases classified elsewhere; F17.210 Nicotine dependence, cigarettes, uncomplicated; M19.042 Primary osteoarthritis, left hand; M19.041 Primary osteoarthritis, right hand; M19.072 Primary osteoarthritis, left ankle and foot; M19.071 Primary osteoarthritis, right ankle and foot; M46.90 Unspecified inflammatory spondylopathy, site unspecified; K57.90 Diverticulosis of intestine, part unspecified, without perforation or abscess without bleeding; Z88.0 Allergy status to penicillin; Z88.1 Allergy status to other antibiotic agents; Z95.5 Presence of coronary angioplasty implant and graft; Z82.49 Family history of ischemic heart disease and other diseases of the circulatory system; Z79.82 Long term (current) use of aspirin; Z79.84 Long term (current) use of oral hypoglycemic drugs; Z83.3 Family history of diabetes mellitus; Z80.9 Family history of malignant neoplasm, unspecified
CPT/HCPCS: 36415; 74176; 80048; 80053; 81003; 81015; 83036; 83605; 83690; 85025; 86140; 87040; 87077; 87086; 87186; 90732; 99284; A9270-GY; J0696; J1650; J2270

== ENCOUNTER 2018-10-28 19:47 | Observation (INO) | payer BC ==
[2018-10-28] MEDS ORDERED: Pantoprazole IV* 40 MG IV ONE (20:28)
[2018-10-28] MEDS ORDERED: NS 0.9% 1000 ML** 1,000 ML IV ONE (20:28)
[2018-10-28] MEDS ORDERED: Metoclopramide IV* 5 MG/ML 2 ML VIAL IV SLOW PU ONE (20:28)
--- NOTE | 2018-10-28 20:29 | ED ---
HPI Diabetic - HPI Summary HPI Summary: This pt is a 52 y/o female, with hx of DM, presenting to [facility] c/o low blood glucose today. Pt reports her sugar keeps dropping down today despite taking Metformin. She only took 1 pill today and normally takes 2 pills. She states her blood glucose was 54 at noon today and went up to 90 after eating. Pt notes her blood glucose was about 47 1.5 hours ago around 1900. Pt reports passing a kidney stone 3 days ago on Thursday night at home. Although she did not see the kidney stone, she states she passed it because she had pain before and after she passed it her pain stopped. She went to Urgent Care yesterday and was dx kidney infection and was given Ciprofloxacin. She states she only took 1 dose this morning. Currently she reports decreased appetite, decreased PO intake, nausea, back pain , and chills. Pt notes decreased appetite due to not feeling well. Denies fever , chest pain, SOB. She has been taking Advil for her pain with mild relief, last time was this morning. - History Of Current Complaint Chief Complaint: EDGeneral Time Seen by Provider: 10/28/18 20:11 Hx Obtained From: Patient Onset/Duration: Lasting Hours, Still Present Timing: Hours Severity Currently: Mild Character: Alert Aggravating: Nothing Alleviating: Nothing Associated Signs & Symptoms: Chills, Nausea Related History: Compliant, DM II - Allergies/Home Medications Allergies/Adverse Reactions: Allergies Allergy/AdvReac Type Severity Reaction Status Date / Time clarithromycin Allergy Diarrhea Verified 10/27/18 10:16 penicillin G Allergy Swelling Verified 10/27/18 10:16 PMH/Surg Hx/FS Hx/Imm Hx Endocrine/Hematology History: Reports: Hx Diabetes - Type 2, Hx Thyroid Disease - on meds Cardiovascular History: Reports: Hx Congestive Heart Failure, Hx Coronary Artery Disease, Hx Hypertension - ON MEDICATION, Other Cardiovascular Problems/ Disorders - hx of cardiomyopathy Respiratory History: Denies: Hx Asthma, Hx Chronic Obstructive Pulmonary Disease (COPD) GI History: Reports: Hx Gastroesophageal Reflux Disease History: Reports: Hx Kidney Infection, Hx Kidney Stones Musculoskeletal History: Reports: Hx Arthritis - back, hands, feet Sensory History: Reports: Hx Contacts or Glasses Denies: Hx Hearing Aid Opthamlomology History: Reports: Hx Contacts or Glasses Psychiatric History: Reports: Hx Anxiety - Surgical History Surgery Procedure, Year, and Place: stent Infectious Disease History: No Infectious Disease History: Denies: Traveled Outside the [place] in Last 30 Days - Family History Known Family History: Positive: Cardiac Disease, Hypertension, Diabetes, Other - cancer Negative: Renal Disease, Seizure Disorder - Social History Alcohol Use: None Substance Use Type: Reports: None Smoking Status (MU): Former Smoker Amount Used/How Often: 1/2ppd Length of Time of Smoking/Using Tobacco: 17yrs total had stop period of time Have You Smoked in the Last Year: Yes Review of Systems Constitutional: Other - POS: decreased PO intake, decreased appetite Positive: Chills. Negative: Fever Negative: Chest Pain Negative: Shortness Of Breath Positive: Nausea Musculoskeletal: Other - POS: back pain All Other Systems Reviewed And Are Negative: Yes Physical Exam - Summary Physical Exam Summary: VITAL SIGNS: Reviewed. GENERAL: Patient is a well-developed and morbidly obese female who is lying comfortable in the stretcher. Patient is not in any acute respiratory distress. HEAD AND FACE: No signs of trauma. No ecchymosis, hematomas or skull depressions. No sinus tenderness. EYES: PERRLA, EOMI x 2, No injected conjunctiva, no nystagmus. EARS: Hearing grossly intact. Ear canals and tympanic membranes are within normal limits. MOUTH: Oropharynx within normal limits. NECK: Supple, trachea is midline, no adenopathy, no JVD, no carotid bruit, no c- spine tenderness, neck with full ROM. CHEST: Symmetric, no tenderness at palpation LUNGS: Clear to auscultation bilaterally. No wheezing or crackles. CVS: Regular rate and rhythm, S1 and S2 present, no murmurs or gallops appreciated. ABDOMEN: Soft, non-tender. No signs of distention. No rebound and no guarding. Bowel sounds are normal. Pt has an umbilical hernia. EXTREMITIES: FROM in all major joints, no edema, no cyanosis or clubbing. NEURO: Alert and oriented x 3. No acute neurological deficits. Speech is normal and follows commands. SKIN: Dry and warm Triage Information Reviewed: Yes Vital Signs On Initial Exam: Initial Vitals Temp Pulse Resp BP Pulse Ox 97.7 F 82 16 91/60 100 10/28/18 19:53 10/28/18 19:53 10/28/18 19:53 10/28/18 19:53 10/28/18 19:53 Vital Signs Reviewed: Yes Diagnostics - Vital Signs Vital Signs Temp Pulse Resp BP Pulse Ox 10/28/18 19:53 97.7 F 82 16 91/60 100 - Laboratory Result Diagrams: 10/28/18 21:05 10/28/18 21:05 Lab Statement: Any lab studies that have been ordered have been reviewed, and results considered in the medical decision making process. - EKG 22:28 Cardiac Rate: NL - at 76 bpm EKG Rhythm: Sinus Rhythm Summary of EKG Findings: Nonspecific T wave changes. Diabetic Course/Dx - Course Assessment/Plan: Pt is a 52 y/o female, with hx of DM type 2, who presents to the ED c/o low blood glucose today. Pt reports her sugar keeps dropping down today despite taking Metformin. She only took 1 pill today and normally takes 2 pills. Pt reports passing a kidney stone 3 days ago on Thursday night at home, although she did not see it. She went to Urgent Care yesterday and was dx kidney infection and was given Ciprofloxacin, only took 1 dose this morning. She reports decreased appetite, decreased PO intake, nausea, back pain, and chills. Pt had a cat scan yesterday at [facility] that was essentialy negative. Labs show WBC of 16.1, sodium of 126, potassium of 5.7, anion gap is 14, creatinine of 1.54, glucose of 54, AST of 72. Urinalysis is consistent with UTI. In the ED course the pt was given IV fluids, reglan, protonix, Toradol, Dextrose, Sodium bicarbonate, Insulin, Rocephin, calcium gluconate. Discussed the case with Dr. Aquino, hospitalist, who accepted the pt for admission. - Diagnoses Provider Diagnoses: Sepsis secondary to UTI, Hypoglycemia - Physician Notifications Discussed Care Of Patient With: Gerri Aquino - hospitalist Time Discussed With Above Provider: 22:01 Instructed by Provider To: Admit As Inpatient Discharge - Sign-Out/Discharge Documenting (check all that apply): Patient Departure - Admit to [facility] Patient Received Moderate/Deep Sedation with Procedure: No - Discharge Plan Condition: Stable Disposition: ADMITTED TO [facility] Referrals: Andrew Alba MD [Primary Care Provider] - - Attestation Statements Document Initiated by Scribe: Yes Documenting Scribe: Becky Mills Provider For Whom Scribe is Documenting (Include Credential): Yana Valenzuela MD Scribe Attestation: Becky Perez, scribed for Yana Valenzuela MD on 10/28/18 at 2239. Status of Scribe Document: Ready
[2018-10-28] MEDS ORDERED: Dextrose 50% Syringe 50 ML* 25 GM/50 ML SYRINGE IV PUSH ONE ×2 (21:08→21:52)
[2018-10-28] MEDS ORDERED: Ketorolac INJ* 30 MG/ML 1 ML VIAL IV PUSH ONE (21:08)
[2018-10-28 21:13] LABS: ABS Basophils 0 10^3/ul (0-0.2); ABS Eosinophils 0.1 10^3/ul (0-0.6); ABS Monocytes 1.3 10^3/ul (0-0.8); ABS Neutrophils 13.8 10^3/ul (1.5-7.7); ABS Nucleated RBC 0 10^3/ul; Eosinophil % 0.5 %; Hematocrit 37 % (33-41); Hemoglobin 12.1 g/dL (12.0-16.0); Mean Corpuscular HGB Conc 33 g/dL (31-36); Mean Corpuscular Hemoglobin 24 pg (27-31); Mean Corpuscular Volume 75 fL (80-97); Mean Platelet Volume 8.5 fL (7.4-10.4); Nucleated Red Blood Cells % 0; Platelet Count 183 10^3/uL (150-450); Red Blood Count 4.97 10^6 /uL (3.70-4.87); Red Cell Distribution Width 17 % (10.5-15); White Blood Count 16.1 10^3/uL (3.5-10.8)
[2018-10-28 21:38] LABS: Urine Appearance Turbid; Urine Bacteria 1+ (Absent); Urine Bilirubin Negative (Negative); Urine Blood 1+ (Negative); Urine Color Amber; Urine Glucose Negative (Negative); Urine Ketones Negative (Negative); Urine Nitrite Positive (Negative); Urine Protein 2+(100 mg/dL) (Negative); Urine Red Blood Cell 2+(6-10/hpf) (Absent); Urine Specific Gravity 1.024 (1.010-1.030); Urine Squamous Epithelial Cell Present (Absent); Urine Urobilinogen Positive (Negative); Urine White Blood Cell 3+(>20/hpf) (Absent)
[2018-10-28 21:42] LABS: Albumin 3.8 g/dL (3.2-5.2); Albumin/Globulin Ratio 1.1 (1-3); BUN/Creatinine Ratio 16.2 (8-20); Calcium 8.6 mg/dL (8.6-10.3); EGFR Non-African American 35.5 (>60); Globulin 3.6 g/dL (2-4); Magnesium 2.1 mg/dL (1.9-2.7); Potassium 5.7 mmol/L (3.5-5.0); Total Bilirubin 1.3 mg/dL (0.2-1.0); Total Protein 7.4 g/dL (6.4-8.9)
[2018-10-28] MEDS ORDERED: cefTRIAXone(*) 2 GM in NS 0.9% 100 ML* 100 ML IVPB ONE (21:50)
[2018-10-28] MEDS ORDERED: Sodium Bicarbonate 8.4%* 50 ML SYRINGE IV ONE (21:51)
[2018-10-28] MEDS ORDERED: Calcium Gluconate INJ* 1 GM in NS 0.9% 100 ML* 100 ML IVPB ONE (21:51)
[2018-10-28] MEDS ORDERED: Insulin REGULAR(*) 1 UNITS UNIT IV PUSH ONE (21:52)
[2018-10-28] MEDS ORDERED: NS 0.9% 1000 ML** 2,000 ML IV ONE (21:52)
[2018-10-28] MEDS ORDERED: Patiromer POWDER* 8.4 GM PAK PO ONE ×2 (22:23→22:30)
[2018-10-28] MEDS ORDERED: Dextrose 50% Syringe 50 ML* 25 GM/50 ML SYRINGE IV PUSH PRN (22:25)
[2018-10-28] MEDS ORDERED: NS 0.9% 100 ML* 100 ML ONE (22:25)
[2018-10-28] MEDS ORDERED: Ondansetron INJ* 2 MG/ML VIAL IV PRN (22:26)
[2018-10-28] MEDS ORDERED: Al Hydrox/Mg Hydrox/Simet LIQ* 30 ML UDC PO PRN (22:26)
[2018-10-28] MEDS ORDERED: Docusate CAP* 100 MG PO PRN (22:26)
[2018-10-28] MEDS ORDERED: Acetaminophen TAB* 325 MG PO PRN (22:26)
[2018-10-28] MEDS ORDERED: Senna TAB PO PRN (22:26)
[2018-10-28] MEDS ORDERED: Cefepime 2 GM in Dextrose(*) 2 GM/50 ML BAG IV ONE (22:29)
--- NOTE | 2018-10-29 00:34 | HP ---
CC: Andrew Alba MD * HISTORY AND PHYSICAL: DATE OF ADMISSION: 10/28/18 TIME OF EVALUATION: 2200. PRIMARY CARE PHYSICIAN: Andrew Alba MD CHIEF COMPLAINT: Low blood sugar. HISTORY OF PRESENT ILLNESS: This is a 52-year-old female with past medical history of morbid obesity and kidney stones, who initially presented to urgent care on the for concern of fevers, chills, and flank pain. The patient states she passed a kidney stone on the evening of Thursday, the , because she was having left flank pain that traveled down to her groin. She had an episode of vomiting and she has passed kidney stones in the past and this like. She followed up at urgent care on the for concern for low-grade fever, chills, nausea, and intermittent groin pain. At that time in urgent care, she was diagnosed with urinary tract infection, started on ciprofloxacin 500 mg p.o. b.i.d. which she has been taking. She has also been taking average of Advil 400 mg per day for the pain. Today, she continues to have subjective fever and chills. Her concern was her glucose was 47 which she has never had issues with low blood glucose in the past. She has been nauseated. The flank pain has resolved but she has some low back pain. No dysuria but decrease in urine output with headache and decrease in appetite. No diarrhea. No cold symptoms. No chest pain or shortness of breath. Otherwise, review of systems is negative. In the emergency room, the patient had labs. Findings concerning for urinary tract infection, which she was given 2 L of IV fluids, Protonix 40 mg, Reglan 10 mg, Toradol 15 mg, amp of D50 with regular insulin, calcium gluconate, and was going to be started on ceftriaxone, but switched to cefepime , and referred to the hospitalist service for further evaluation. PAST MEDICAL HISTORY: 1. History of morbid obesity. 2. History of nephrolithiasis. 3. Diabetes, not on insulin. 4. Hypertension. 5. History of coronary artery disease, status post PCI at [facility]. 6. Hyperlipidemia. 7. GERD. 8. History of cardiomyopathy. 9. Hypothyroidism. MEDICATIONS: 1. Atorvastatin 10 mg daily. 2. Aspirin 81 mg daily. 3. Tylenol 650 mg every 6 hours as needed. 4. Advil 400 mg as needed. 5. Glyburide/metformin 2.5/500 one tab p.o. b.i.d. 6. Ciprofloxacin 500 mg p.o. b.i.d. This was started on yesterday, the . 7. Coreg 25 mg p.o. b.i.d. 8. Bumex 1 mg p.o. daily. 9. Pyridium 100 mg p.o. t.i.d., started on 10/27/18. 10. Omeprazole 20 mg daily. 11. Lisinopril 40 mg daily. 12. Synthroid 100 mcg daily. 13. Amlodipine 10 mg daily. 14. Brilinta 90 mg p.o. b.i.d. ALLERGIES: CLARITHROMYCIN, PENICILLIN. FAMILY HISTORY: Significant for coronary artery disease. SOCIAL HISTORY: The patient lives alone. She is independent of her ADLs. Her brother who is her healthcare proxy lives next door. She smokes a few cigarettes per week. No alcohol or illicit drug use. 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 Code status is full code. REVIEW OF SYSTEMS: A 14-point review of systems as mentioned in the HPI, otherwise negative. PHYSICAL EXAMINATION GENERAL: No acute distress, resting comfortably. VITAL SIGNS: Temp 97.7, pulse rate is 80, respiratory rate is 16, oxygen saturation 97% on room air, blood pressure 125/67. HEENT: Head: Normocephalic. Pupils equal and reactive. Anicteric. Oropharynx: Mucous membranes dry. NECK: Supple. No lymphadenopathy. RESPIRATORY: Clear to auscultation. No wheezes, rhonchi, or rales. CARDIAC: Regular rate and rhythm. Soft systolic murmur heard throughout. ABDOMEN: Morbidly obese. Soft, nontender. No CVA tenderness. EXTREMITIES: Trace pretibial edema. NEUROLOGIC: Alert and oriented x3. No gross focal neurologic deficits. DIAGNOSTIC STUDIES/LAB DATA: White count 16.1, hemoglobin 12.1, hematocrit 37, platelets 183,000. Sodium 126, potassium 5.7, chloride 93, bicarb 19. BUN 25, creatinine 1.54. Glucose 54, repeat 192. Lactic acid 2. Total bili 1.3. AST is 72. Urine shows +2 protein, +1 blood, positive nitrites, white cells. The patient did have a CAT scan done on the 3rd that did not show any hydronephrosis, no stones, anterior abdominal wall hernia with omental fat infiltration noted. No change. ASSESSMENT AND PLAN: This is a 52-year-old female with past medical history of nephrolithiasis, recent diagnosis of urinary tract infection, presents to the emergency room for hypoglycemia. 1. Hypoglycemia. I suspect this is in the setting of worsening renal failure, on metformin. Plan: We will hold her oral agents, continue IV fluids, and place her on lispro sliding scale as needed and check her glucose q.4 hours overnight. 2. Acute kidney injury. Assessment: Could be in the setting of a recent kidney stone passed. Also urinary tract infection. The patient has also been taking Advil. Plan: We will check a renal ultrasound and check a FENa. We will hold her glyburide and metformin and her lisinopril, renally dose her meds and repeat her renal function in the morning. 3. Pyuria. Assessment: The patient with a white count and pyuria concerning for urinary tract infection. She was on ciprofloxacin for 24 hours. We will change it to cefepime for better pseudomonas coverage. Follow up her urine cultures. Continue on gentle IV fluids. 4. Chronic medical problems. We will resume her home medications with the exceptions as mentioned above. We will hold her amlodipine as her blood pressures are soft. Continue on her Coreg. Also, hold her Bumex in the setting of worsening renal failure and volume depletion. 5. Hyperkalemia. No evidence of peak T-waves. We will give her a dose of patiromer. Repeat her labs in the morning. 6. FEN. Place the patient on a regular diet with IV fluids. 7. DVT prophylaxis. The patient scores moderate risk. We will place her on heparin subcu t.i.d. TIME SPENT: Greater than 60 minutes was spent doing this history and physical, more than half the time spent in direct patient contact. [id number]/[facility] #: [id number] JENNI
[2018-10-29] MEDS: Lactated Ringers 1000 ML Bag* 1,000 ML IV SCH ×2 (00:54→11:07)
[2018-10-29] MEDS ORDERED: Heparin VIAL(*) 5000 UNITS/ML VIAL (FIVE THOUSAND) SUBCUT SCH (06:00)
[2018-10-29] MEDS ORDERED: Levothyroxine TAB* 100 MCG TAB PO SCH (06:00)
[2018-10-29 06:58] LABS: Albumin 3.3 g/dL (3.2-5.2); Albumin/Globulin Ratio 1.3 (1-3); BUN/Creatinine Ratio 17.2 (8-20); Calcium 8.4 mg/dL (8.6-10.3); EGFR African American 53.2 (>60); Globulin 2.6 g/dL (2-4); Potassium 3.3 mmol/L (3.5-5.0); Total Protein 5.9 g/dL (6.4-8.9)
[2018-10-29 07:00] LABS: ABS Basophils 0 10^3/ul (0-0.2); ABS Eosinophils 0.1 10^3/ul (0-0.6); ABS Lymphocytes 1.1 10^3/ul (1.0-4.8); ABS Monocytes 0.9 10^3/ul (0-0.8); ABS Neutrophils 9.2 10^3/ul (1.5-7.7); ABS Nucleated RBC 0 10^3/ul; Eosinophil % 0.7 %; Hematocrit 31 % (33-41); Hemoglobin 10.5 g/dL (12.0-16.0); Lymphocyte % 9.4 %; Mean Corpuscular HGB Conc 33 g/dL (31-36); Mean Corpuscular Hemoglobin 25 pg (27-31); Mean Corpuscular Volume 74 fL (80-97); Mean Platelet Volume 8.9 fL (7.4-10.4); Nucleated Red Blood Cells % 0; Platelet Count 148 10^3/uL (150-450); Red Blood Count 4.24 10^6 /uL (3.70-4.87); Red Cell Distribution Width 16 % (10.5-15); White Blood Count 11.3 10^3/uL (3.5-10.8)
[2018-10-29] MEDS ORDERED: Insulin LISPRO* 1 UNITS UNIT SUBCUT SCH (07:30)
[2018-10-29] MEDS ORDERED: Ticagrelor* 90 MG TAB PO SCH (09:00)
[2018-10-29] MEDS ORDERED: Aspirin EC TAB* 81 MG TAB.EC PO SCH (09:00)
[2018-10-29] MEDS ORDERED: Carvedilol TAB* 25 MG PO SCH (09:00)
[2018-10-29] MEDS ORDERED: Atorvastatin* 10 MG TAB PO SCH (09:00)
[2018-10-29] MEDS ORDERED: Pantoprazole TAB * 40 MG TAB PO SCH (09:00)
--- NOTE | 2018-10-29 12:33 | DS ---
CC: Dr. Alba* DISCHARGE SUMMARY: DATE OF ADMISSION: 10/28/18 DATE OF DISCHARGE: 10/29/18 HISTORY OF PRESENT ILLNESS: This 52-year-old woman came with the chief complaint of low blood sugar. I am not sure where the blood sugar was taken. The patient is diabetic and has a glucometer at home. She does not use insulin at home. She takes a combination of glyburide and metformin at home. She usually gets her blood sugars in the 120s. She did get shaky. She did have a blood sugar of 54 in the hospital on 10/28/18 at 2105 hours. She did get insulin, glucose, and calcium in the emergency room for hyperkalemia. She also received patiromer. I am not completely sure about the sequence of the insulin glucose treatment and the blood sugars. The patient was started on ciprofloxacin for urinary tract infection on . That urine culture showed mixed karen of uncertain significant and urinalysis shows pyuria and nitrites but no leukocyte esterase. She has no further urinary tract symptoms. She has a history of kidney stones. Ultrasound of the kidneys was negative for stones or hydronephrosis. She did have some renal insufficiency. I note a year ago her creatinine was 0.71. On admission, her creatinine was 1.54. On the day of discharge, it was 1.28. She was feeling quite well, eating and drinking normally with no symptoms or other symptoms and was anxious to go home. I have instructed her not to take glyburide metformin combination. She also was receiving less blood pressure medicine than at home as well as her blood pressure was well controlled here on much less medication. She will have a BMP on 11/01/18, and follow up with Dr. Alba next week. FINAL DIAGNOSES: 1. Hypoglycemia. 2. Diabetes. 3. Acute kidney injury. 4. Possible urinary tract infection. 5. History of kidney stones with negative ultrasound today. 6. Morbid obesity. DISCHARGE MEDICATIONS: 1. Omeprazole 20 mg daily. 2. Levothyroxine 100 mcg daily. 3. Carvedilol 25 mg b.i.d. 4. Ticagrelor 90 mg b.i.d. 5. Atorvastatin 10 mg daily. 6. Aspirin 81 mg daily. 7. Bumetanide 1 mg daily. 8. Acetaminophen 650 mg every 6 hours p.r.n. 9. Ciprofloxacin 500 mg b.i.d. to complete a prescription. 10. Phenazopyridine 100 mg t.i.d. Medications discontinued: 1. Lisinopril. 2. Amlodipine. 3. Glyburide. 4. Metformin. The patient will have a BMP on 11/01/18. DISPOSITION ON DISCHARGE: Home. CONDITION ON DISCHARGE: Improved. [id number]/[facility] #: [id number] MTDD
[2018-10-29 14:26] VITALS: BP 114/60
[2018-10-29] MEDS ORDERED: Cefepime 2 GM in Dextrose(*) 2 GM/50 ML BAG IV SCH (21:00)
== END 2018-10-29 14:42 | disposition home or self-care (01) ==
LOC: ED 19:47 → MEDTELE 22:42 → INTOOBSV 22:42
PROVIDERS: ADMIT Pediatrics; ATTEND Internal Medicine
DX: E11.649 Type 2 diabetes mellitus with hypoglycemia without coma (principal); N17.9 Acute kidney failure, unspecified; Z87.442 Personal history of urinary calculi; E66.01 Morbid (severe) obesity due to excess calories; R68.83 Chills (without fever); Z87.891 Personal history of nicotine dependence; A41.9 Sepsis, unspecified organism; R11.0 Nausea; Z79.84 Long term (current) use of oral hypoglycemic drugs; I25.10 Atherosclerotic heart disease of native coronary artery without angina pectoris; I10 Essential (primary) hypertension; K21.9 Gastro-esophageal reflux disease without esophagitis; N39.0 Urinary tract infection, site not specified; Z79.82 Long term (current) use of aspirin
CPT/HCPCS: 36415; 76775; 80053; 81003; 81015; 82150; 83605; 83690; 83735; 85025; 87040; 87086; 93005; 99284; A9270-GY; G0378; J0610; J0692; J0696; J1644; J1885; J2405; J2765

== ENCOUNTER 2019-06-08 18:21 | Emergency (ER) | payer BC ==
--- NOTE | 2019-06-08 18:49 | ED ---
Laceration/Wound HPI - HPI Summary HPI Summary: 53 year old female presents with right thumb laceration today. She cut it on a mandolin. the area of her thumb almost fell off. the area continues to bleed. she is unsure when her last tetanus was. she is diabetic. She has full ROM of her finger. no foreign body in wound. she is right handed. - History of Current Complaint Stated Complaint: CUT FINGER PER PT Time Seen by Provider: 06/08/19 18:27 Pain Intensity: 3 - Additional Pertinent History Primary Care Physician: [id number] - Allergy/Home Medications Allergies/Adverse Reactions: Allergies Allergy/AdvReac Type Severity Reaction Status Date / Time clarithromycin Allergy Diarrhea Verified 06/08/19 18:26 penicillin G Allergy Swelling Verified 06/08/19 18:26 PMH/Surg Hx/FS Hx/Imm Hx Endocrine/Hematology History: Reports: Hx Diabetes - Type 2, Hx Thyroid Disease - on meds Denies: Hx Anticoagulant Therapy, Hx Anemia, Hx Unexplained Bleeding Cardiovascular History: Reports: Hx Congestive Heart Failure, Hx Coronary Artery Disease, Hx Hypertension - ON MEDICATION, Other Cardiovascular Problems/ Disorders - hx of cardiomyopathy Denies: Hx Aneurysm, Hx Angina, Hx Cardiac Arrest, Hx Congenital Heart Disease, Hx Embolism, Hx Hypercholesterolemia, Hx Pacemaker/ICD, Hx Peripheral Vascular Disease, Hx Rheumatic Fever Respiratory History: Denies: Hx Asthma, Hx Bronchopulmonary Dysplasia, Hx Chronic Obstructive Pulmonary Disease (COPD), Hx Cystic Fibrosis, Hx Pneumonia, Hx Pulmonary Edema, Hx Pulmonary Embolism, Hx Seasonal Allergies, Hx Sleep Apnea GI History: Reports: Hx Gastroesophageal Reflux Disease Denies: Hx Cirrhosis, Hx Crohn's Disease, Hx Diverticulosis, Hx Gall Bladder Disease, Hx Gastrointestinal Bleed, Hx Hiatal Hernia, Hx Irritable Bowel, Hx Jaundice, Hx Obstructive Bowel, Hx Ileostomy, Hx Pyloric Stenosis, Hx Ulcer Comment Only: Other GI Disorders - umbilical hernia History: Reports: Hx Kidney Infection, Hx Kidney Stones Denies: Hx Acute Renal Failure, Hx Benign Prostatic Hyperplasia, Hx Chronic Renal Failure, Hx Dialysis Musculoskeletal History: Reports: Hx Arthritis - back, hands, feet Sensory History: Reports: Hx Contacts or Glasses Denies: Hx Cataracts, Hx Eye Injury, Hx Glaucoma, Hx Legally Blind, Hx Macular Degeneration, Hx Vision Problem, Hx Deafness, Hx Hearing Aid, Hx Hearing Problem Opthamlomology History: Reports: Hx Contacts or Glasses Denies: Hx Cataracts, Hx Eye Injury, Hx Glaucoma, Hx Legally Blind, Hx Macular Degeneration, Hx Vision Problem Neurological History: Reports: Hx Headaches Denies: Hx Dementia, Hx Migraine, Hx Nerve Disease, Hx Seizures, Hx Transient Ischemic Attacks (TIA) Psychiatric History: Reports: Hx Anxiety Denies: Hx Oppositional [place] Disorder, Hx Depression, Hx Panic Disorder, Hx Post Traumatic Stress Disorder, Hx Inpatient Treatment, Hx Community Mental Health Tx, Hx Schizophrenia, Hx Bipolar Disorder, Hx Suicide Attempt, Hx of Violent Episodes Against Others - Surgical History Surgery Procedure, Year, and Place: stent Infectious Disease History: No Infectious Disease History: Denies: Hx Clostridium Difficile, Hx Hepatitis, Hx of Known/Suspected MRSA, Hx Shingles, Hx Tuberculosis, Hx Known/Suspected VRE, Hx Known/Suspected VRSA, Traveled Outside the [place] in Last 30 Days - Family History Known Family History: Positive: Cardiac Disease, Hypertension, Diabetes, Other - cancer Negative: Renal Disease, Seizure Disorder - Social History Alcohol Use: Rare Substance Use Type: Reports: None Smoking Status (MU): Current Some Day Smoker Amount Used/How Often: 1/2ppd Length of Time of Smoking/Using Tobacco: 17yrs total had stop period of time Have You Smoked in the Last Year: Yes Review of Systems Negative: Fever Negative: Chest Pain Negative: Shortness Of Breath Positive: Other - right thumb laceration All Other Systems Reviewed And Are Negative: Yes Physical Exam Triage Information Reviewed: Yes Vital Signs On Initial Exam: Initial Vitals Temp Pulse Resp BP Pulse Ox 97.5 F 83 19 146/87 96 06/08/19 18:23 06/08/19 18:23 06/08/19 18:23 06/08/19 18:23 06/08/19 18:23 Vital Signs Reviewed: Yes Appearance: Positive: Well-Appearing Skin: Positive: Other - 2cm by 1/2cm laceration near right thumb nail Head/Face: Positive: Normal Head/Face Inspection Eyes: Positive: Normal, Conjunctiva Clear ENT: Positive: Pharynx normal Respiratory/Lung Sounds: Positive: Clear to Auscultation, Breath Sounds Present Cardiovascular: Positive: Normal, RRR Musculoskeletal: Positive: Strength/ROM Intact - right thumb, Other - capillary refill<2 secs Neurological: Positive: Normal Psychiatric: Positive: Normal Procedures - Sedation Patient Received Moderate/Deep Sedation with Procedure: No - Laceration/Wound Repair 1 Location: Other - right thumb Description: Irregular Anesthesia: Digital, 1.0% Length, Depth and Shape: 2cm by 1/2cm Irrigated w/ Saline (ccs): 500 Closure: Single Layer Suture Type: Prolene Number of Sutures: 2 Sterile Dressing Applied?: Yes - telfa, coband, xeroform, surgicel Diagnostics - Vital Signs Vital Signs Temp Pulse Resp BP Pulse Ox 06/08/19 18:23 97.5 F 83 19 146/87 96 - Laboratory Lab Statement: Any lab studies that have been ordered have been reviewed, and results considered in the medical decision making process. Re-Evaluation - Re-Evaluation First Eval Re-Evaluation Time: 19:40 Comment: no bleeding Laceration Repair Course/Dx - Course Course Of Treatment: 53 year old female presents with right thumb laceration today. She cut it on a mandolin. the area of her thumb almost fell off. the area continues to bleed. she is unsure when her last tetanus was. she is diabetic. She has full ROM of her finger. no foreign body in wound. she is right handed. on exam has 2cm by 1/2cm laceration near nail of right thumb that continues to bleed. placed 2 sutures and area continues to bleed so placed pressure dressing with surgicel, xeroform, coband and telfa. told change dressing in two days. told follow up with primary for wound check. patient understand and agrees with plan. - Differential Dx Differental Diagnoses: Abrasion, Avulsion, Laceration - Clinical Impression Provider Diagnoses: Finger laceration Discharge ED - Sign-Out/Discharge Documenting (check all that apply): Patient Departure - Discharge Plan Condition: Good Disposition: HOME Patient Education Materials: [facility] Your [facility] (ED) Referrals: Andrew Alba MD [Primary Care Provider] - Additional Instructions: Keep area in pressure dressing for 48 hours, after 48 hours check for sign of infection and rewrap with pressure dressing for another 24 hours suture removal in 8-10 days Follow up with primary within 5 days Return to ED if develop any signs of infection such as fever, spreading redness , or pus formation or if bleed through pressure dressing or any new or worsening symptoms - Billing Disposition and Condition Condition: GOOD Disposition: Home
--- OUTSIDE RECORDS SUMMARY | 2019-06-08 18:53 | XMS REPORT | Summary of Care ---
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 Uncontrolled type 2 diabetes mellitus without complication, without long-term current use of insulin ([facility]); [address] [place] [address] [place] [address] [phone] Allergies Active Allergy Reactions Severity Noted Date Comments Clarithromycin GI Reaction Low 02/09/2015 Extremely bad diarrhea, medicine taste in mouth Penicillin G Potassium 08/31/2007 documented as of this encounter (statuses as of 04/13/2019) Medications Medication Sig Dispensed Refills Start Date End Date Status Blood Glucose by Does not apply 1 Kit 0 06/26/2015 Active Monitoring Suppl route. (BLOOD GLUCOSE METER) Brand:accucheck Does not apply Kit Dx:E11.9 non-Insulin dependent Test Blood Glucose 1 time(s) A DAY Glucose Blood 1 Each by Does 100 Each 5 06/10/2016 Active (ACCU-CHEK COMPACT not apply route PLUS) In Vitro Strip DAILY. aspirin 81 MG Oral Take 1 Tab by 30 Tab 0 09/01/2017 Active Tab EC mouth DAILY. bumetanide (BUMEX) 1 Take 1 Tab by 90 Tab 3 02/19/2018 Active MG Oral Tab mouth DAILY. lisinopril (PRINIVIL, Take 1 Tab by 90 Tab 3 10/21/2018 Active ZESTRIL) 40 MG Oral mouth DAILY. TabIndications: Essential hypertension, benign metFORMIN HCL 1000 MG Take 1 Tab by 180 Tab 3 11/04/2018 Active Oral Tab mouth TWICE DAILY. Omeprazole delayed Take 20 mg by 90 Cap 3 11/04/2018 Active rel cap 20 MG Oral mouth DAILY. CAPSULE DELAYED RELEASE sertraline (ZOLOFT) Take 1 Tab by 90 Tab 3 11/04/2018 Active 50 MG Oral Tab mouth DAILY. 1 in am 5 d then 2 in am levothyroxine Take 1 Tab by 360 Tab 0 11/04/2018 11/04/2019 Active (SYNTHROID\\UNITHROID) mouth BEFORE 100 MCG Oral Tab BREAKFAST. carvedilol (COREG) 25 Take 1 Tab by 180 Tab 3 03/21/2019 Active MG Oral Tab mouth TWICE DAILY. amLodipine (NORVASC) Take 1 Tab by 90 Tab 3 03/21/2019 Active 10 MG Oral mouth DAILY. TabIndications: Essential hypertension Rosuvastatin Calcium Take 1 Tab by 90 Tab 3 03/21/2019 Active (CRESTOR) 20 MG Oral mouth DAILY. Tab ciprofloxacin (CIPRO) Take 1 Tab by 14 Tab 0 04/13/2019 04/20/2019 Active 500 MG Oral mouth TWICE DAILY TabIndications: for 7 days. Dysuria documented as of this encounter (statuses as of 04/13/2019) Active Problems Problem Noted Date Heart failure with preserved ejection fraction 10/02/2017 ASHD (arteriosclerotic heart disease) 09/01/2017 Mixed hyperlipidemia 09/01/2017 Umbilical hernia without obstruction and without gangrene 05/25/2015 Uncontrolled type 2 diabetes mellitus without complication, without 04/03/2006 long-term current use of insulin Overview: Yearly eye exam with Dr. Patton. Other specified hypothyroidism 04/03/2006 Morbid obesity 06/11/2000 Essential hypertension, benign documented as of this encounter (statuses as of 04/13/2019) Resolved Problems Problem Noted Date Resolved Date Nonischemic cardiomyopathy 04/03/2006 10/02/2017 documented as of this encounter (statuses as of 04/13/2019) Immunizations Name Administration Dates Next Due Influenza (IM) Preservative Free 05/25/2014, 08/05/2010 documented as of this encounter Social History Tobacco Use Types Packs/Day Years Used Date Current Some Day Smoker Cigarettes Smokeless Tobacco: Never Used Comments: quit 02/01, had restarted 08/04 / quit one month ago Alcohol Use Drinks/Week oz/Week Comments No 0 Standard drinks or equivalent 0.0 Sex Assigned at Date Recorded Not on file Job Start Date Occupation Industry Not on file Not on file Not on file Travel History Travel Start Travel End No recent travel history available. documented as of this encounter Last Filed Vital Signs Vital Sign Reading Time Taken Comments Blood Pressure 137/68 04/13/2019 2:56 PM EDT Pulse 66 04/13/2019 2:56 PM EDT Temperature 36.8 04/13/2019 2:56 PM EDT C (98.3 F) Respiratory Rate - - Oxygen Saturation - - Inhaled Oxygen Concentration - - Weight 134.3 kg (296 lb) 04/13/2019 2:56 PM EDT Height 154.9 cm (5' 1") 04/13/2019 2:56 PM EDT Body Mass Index 55.93 04/13/2019 2:56 PM EDT documented in this encounter Patient Instructions Patient InstructionsMaggie Cabrera FNP - 04/13/2019 3:00 PM EDTIncrease fluids Can try taking 2 Prilosec a day for 4-5 days Use Cipro if symptoms worsen Follow up with Dr Alba soonElectronically signed by Maggie Cabrera FNP at 3:27 PM EDT documented in this encounter Progress Notes Maggie Cabrera FNP - 04/13/2019 3:00 PM EDT PATIENT: Jennifer Shea : 1965 DATE OF SERVICE: 04/13/2019 CHIEF COMPLAINT: Chief Complaint Patient presents with Check Up UTI symptoms for a few weeks that is now affecting her back. Subjective HISTORY OF PRESENT ILLNESS: Jennifer hSea is a 53-y.o. female. HPI Body aches for several days. Had burning with urination recently - got better with cranberry juice. 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 aspirin 81 MG Oral Tab EC Take 1 Tab by mouth DAILY. Blood Glucose Monitoring Suppl (BLOOD GLUCOSE METER) Does not apply Kit by Does not apply route. Brand:accuchCloudmark Dx:E11.9 non-Insulin dependent Test Blood Glucose 1 time(s) A DAY bumetanide (BUMEX) 1 MG Oral Tab Take 1 Tab by mouth DAILY. carvedilol (COREG) 25 MG Oral Tab Take 1 Tab by mouth TWICE DAILY. ciprofloxacin (CIPRO) 500 MG Oral Tab Take 1 Tab by mouth TWICE DAILY for 7 days. Glucose Blood (ACCU-CHEK COMPACT PLUS) In Vitro Strip 1 Each by Does not apply route DAILY. levothyroxine (SYNTHROID\\UNITHROID) 100 MCG Oral Tab Take 1 Tab by mouth BEFORE BREAKFAST. lisinopril (PRINIVIL, ZESTRIL) 40 MG Oral Tab Take 1 Tab by mouth DAILY. metFORMIN HCL 1000 MG Oral Tab Take 1 Tab by mouth TWICE DAILY. Omeprazole delayed rel cap 20 MG Oral CAPSULE DELAYED RELEASE Take 20 mg by mouth DAILY. Rosuvastatin Calcium (CRESTOR) 20 MG Oral Tab Take 1 Tab by mouth DAILY. sertraline (ZOLOFT) 50 MG Oral Tab Take 1 Tab by mouth DAILY. 1 in am 5 d then 2 in am No current facility-administered medications for this visit. Allergies Allergen Reactions Penicillin [Penicillin G Potassium] Biaxin [Clarithromycin] GI Reaction Extremely bad diarrhea, medicine taste in mouth Social History Socioeconomic History Marital status: Single Spouse name: Not on file Number of children: Not on file Years of education: Not on file Highest education level: Not on file Occupational History Not on file Social Needs Financial resource strain: Not on file Food insecurity: Worry: Not on file Inability: Not on file Transportation needs: Medical: Not on file Non-medical: Not on file Tobacco Use Smoking status: Current Some Day Smoker Types: Cigarettes Smokeless tobacco: Never Used Tobacco comment: quit 02/01, had restarted 08/04 / quit one month ago Substance and Sexual Activity Alcohol use: No Alcohol/week: 0.0 standard drinks Drug use: No Sexual activity: Never Lifestyle Physical activity: Days per week: Not on file Minutes per session: Not on file Stress: Not on file Relationships Social connections: Talks on phone: Not on file Gets together: Not on file Attends taoism service: Not on file Active member of club or organization: Not on file Attends meetings of clubs or organizations: Not on file Relationship status: Not on file Intimate partner violence: Fear of current or ex partner: Not on file Emotionally abused: Not on file Physically abused: Not on file Forced sexual activity: Not on file Other Topics Concern Back Care Not Asked Bike Helmet Not Asked Blood Transfusions Not Asked Caffeine Concern No Exercise No Comment: sedentary lifestyle Hobby Hazards Not Asked International Travel Not Asked Service Not Asked Occupational Exposure Not Asked Seat Belt Not Asked Self-Exams Not Asked Sleep Concern Yes Comment: difficulty falling asleep. Special Diet Yes Comment: low carbo diet Stress Concern Yes Weight Concern Yes Comment: goal weight 150 lbs. 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 REVIEW OF SYSTEMS: Review of Systems Constitutional: Positive for malaise/fatigue. Negative for chills and fever. Respiratory: Negative for shortness of breath. Cardiovascular: Negative for chest pain and palpitations. Gastrointestinal: Positive for abdominal pain, diarrhea and nausea. Negative for vomiting. Genitourinary: Positive for dysuria. Negative for frequency, hematuria and urgency. Musculoskeletal: Positive for back pain and myalgias. Objective PHYSICAL EXAM: VITALS: BP 137/68 | Pulse 66 | Temp 98.3 F (36.8 C) | Ht 5' 1" ( 1.549 m) | Wt 296 lb (134.3 kg) | BMI 55.93 kg/m Body mass index is 55.93 kg/m. Physical Exam Constitutional: She is oriented to person, place, and time. Vital signs are normal. She appears well-developed and well-nourished. HENT: Head: Normocephalic and atraumatic. Mouth/Throat: Uvula is midline and oropharynx is clear and moist. Eyes: Pupils are equal, round, and reactive to light. EOM are normal. Neck: Normal range of motion. No JVD present. Cardiovascular: Normal rate and regular rhythm. Pulmonary/Chest: Effort normal and breath sounds normal. Abdominal: Soft. Bowel sounds are normal. She exhibits no distension and no mass. There is no hepatosplenomegaly. There is tenderness. There is no rigidity , no rebound and no guarding. No hernia. Musculoskeletal: Normal range of motion. Lymphadenopathy: She has no cervical adenopathy. Neurological: She is alert and oriented to person, place, and time. No cranial nerve deficit or sensory deficit. Skin: Skin is warm and dry. No pallor. Vitals reviewed. ASSESSMENT / IMPRESSION: ICD-9-CM ICD-10-CM 1. Dysuria 788.1 R30.0 URINE DIP MANUAL (AMB POCT) ciprofloxacin (CIPRO) 500 MG Oral Tab 2. Uncontrolled type 2 diabetes mellitus without complication, without long- term current use of insulin (HCC) 250.02 E11.65 3. Myalgia 729.1 M79.10 Plan Increase fluids Can try taking 2 Prilosec a day for 4-5 days Use Cipro if symptoms worsen Follow up with Dr Anjali nicole Author: ANIRUDH Willson 04/13/2019 15:36 documented in this encounter Plan of Treatment Date Type Specialty Care Team Description 05/03/2019 Office Visit Family Practice Zoey Nelson FNP [address] [place] [id number] 11/30/2019 Orders Only Cardiology 12/07/2019 Office Visit Cardiology Eleuterio Salmeron MD [facility] [place] [address] Name Type Priority Associated Diagnoses Order Schedule URINE DIP MANUAL (AMB POCT) POCT Routine Dysuria Ordered: 04/13/2019 Health Maintenance Due Date Last Done Comments PNEUMOCOCCAL 0-64 YRS (1 of 1972 1 - PPSV23) PAP SMEAR 12/10/2008 12/10/2005 ZOSTER IMMUNIZATION SERIES 2016 (1 of 2) DEPRESSION SCREENING 10/02/2018 10/02/2017 FOOT EXAM 12/08/2018 12/08/2017, 12/08/2017, 12/08/2017, Additional history exists INFLUENZA VACCINE (#1) 2019 05/25/2014, 08/05/2010 HEMOGLOBIN A1C 05/06/2019 11/04/2018, 12/08/2017, 09/23/2017, Additional history exists Diabetic Eye Exam 10/29/2019 10/28/2017 MAMMOGRAM (SCREENING) 02/12/2020 02/11/2019, 10/20/2017, 03/13/2016, Additional history exists LIPID DISORDER SCREENING 03/21/2020 03/21/2019, 11/04/2018, 12/08/2017, Additional history exists COLONOSCOPY SCREENING 12/17/2020 12/18/2015, 12/18/2015, 02/15/2015 (Postponed), Additional history exists HPV IMMUNIZATION SERIES Aged Out No longer eligible based on patient's age to complete this topic MENINGOCOCCAL VACCINE IMM Aged Out No longer eligible based on patient's age to complete this topic documented as of this encounter Goals Goal Patient Goal Associated Recent Patient-Stated? Author Type Problems Progress Blood Pressure Blood Pressure 137/68 No Leslie, < 140/90 (04/13/2019 ANIRUDH Greer 2:56 PM EDT) Note: This is an individualized treatment (blood pressure) goal for Jennifer Shea: Displayed above (on the left) is your goal for blood pressure control. Your most recent blood pressure is also shown above, on the right. You should try to achieve blood pressures that are lower than your goal listed above (on the left). Weight increase vs. 18 mo CHF 31 (04/13/2019 2:56 PM EDT) No Andrew Alba MD min (lbs) < 5 Note: This is an individualized treatment (congestive heart failure, CHF) goal for Jennifer Shea: Displayed above (on the right) is how many pounds you are in excess of your lowest weight over the past 18 months. Note that lower numbers are better. Excessive weight gain often indicates fluid reten tion and worsening heart failure. You should contact your doctor immediately if the above number is too high (above your goal, the number on the left). Glycohemoglobin A1c < 7.0 Diabetes 6.4 (11/04/2018 11:56 Zoey Hernandez FNP AM EDT) Note: This is an individualized treatment (diabetes control, HgbA1C) goal for Jennifer Shea: Displayed above is your progress towards your HgbA1C goal. Your goal is shown above (on the left); your most recent HgbA1C is shown on the right. Note that lower numbers are better. Weight loss vs. 18 mo Lifestyle 0 (04/13/2019 2:56 PM No Zoey Nelson FNP max (lbs) >= 10 EDT) Note: This is an individualized lifestyle goal for Jennifer Shea: Your body mass index (BMI) is more than 30. You should lose weight. A reasonable starting goal is to lose 10 pounds. Displayed above is how many pounds you have lost thus far towards your 10 pound weight loss goal. Keep immunizations current Lifestyle Zoey Hernandez FNP Note: This is an individualized lifestyle goal for Jennifer Shea: Please be sure to keep up-to-date on recommended immunizations. For example, this would include a yearly influenza vaccine. Immunization status can be seen by looking at the Health Maintenance sections of your e[facility], Plan of Care, and any After Visit Summaries. Consume a [id number] diet Lifestyle Andrew Connors MD Note: This is an individualized lifestyle goal for Jennifer Shea: Please do not add additional salt to your food. Additional salt may lead to fluid retention and worsen your congestive heart failure. Take all prescribed medications as Self-management Zoey Hernandez FNP directed Note: This is an individualized self-management goal for Jennifer Shea: Please take all prescribed medications as directed. 1. Do not skip doses. If you cannot afford your medications, talk with your doctor. 2. Use a pill reminder system such as a pill box if needed. Your pharmacist can help you with this. 3. Contact your Pharmacy 5 days before your medication runs out. If you cannot take your medications for any reasons, talk with your doctor. 4. Please bring all of your medication bottles and inhalers (or a list of all your medications/inhalers) with you to every visit. Potential barriers to meeting all of your care plan goals will continue to be addressed on an ongoing basis. Check your weight daily Self-management Andrew Connors MD Note: This is an individualized self-management goal for Jennifer Shea: Please check your weight daily. Refer to the accompanying CHF treatment goal and call your doctor immediately for further instructions on how to respond to unexpected weight gain. 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 / [id number] documented as of this encounter Results Not on filedocumented in this encounter Visit Diagnoses Diagnosis Dysuria - Primary Uncontrolled type 2 diabetes mellitus without complication, without long-term current use of insulin (HCC) Myalgia Mylagia and myositis, unspecified documented in this encounter Insurance Payer Benefit Plan / Subscriber ID Effective Dates Phone Address Type Group YUVAL VALENZUELABS YUVAL VALENZUELABS xxxxxxxxxxxx 2014-Present [employer] Name Account Type Relation to Date of Phone Billing Patient Address Cuca Shea Personal/Family 1965 [address] (Home) [place], [place] [phone] [id number] (Work) documented as of this encounter
[2019-06-08] MEDS: Tetan/Diph/Pertus SYR(Tdap)* 0.5 ML SYR(BOOSTRIX) use SYR contains LATEX IM ONE (18:55)
[2019-06-08] MEDS: Lidocaine 1% INJ* 10 MG/ML 30 ML SDV INJ ONE (19:23)
[2019-06-08 19:59] VITALS: BP 150/82
== END 2019-06-08 19:51 | disposition home or self-care (01) ==
LOC: ED 18:21
DX: S61.011A Laceration without foreign body of right thumb without damage to nail, initial encounter (principal); Z23 Encounter for immunization; W27.4XXA Contact with kitchen utensil, initial encounter; Y92.9 Unspecified place or not applicable; E11.9 Type 2 diabetes mellitus without complications; E07.9 Disorder of thyroid, unspecified; I11.0 Hypertensive heart disease with heart failure; I50.9 Heart failure, unspecified; I25.10 Atherosclerotic heart disease of native coronary artery without angina pectoris; K21.9 Gastro-esophageal reflux disease without esophagitis; F41.9 Anxiety disorder, unspecified; F17.200 Nicotine dependence, unspecified, uncomplicated; Z79.899 Other long term (current) drug therapy; Z88.1 Allergy status to other antibiotic agents; Z88.0 Allergy status to penicillin
CPT/HCPCS: 12001; 90471; 90715; 99282

== ENCOUNTER 2020-06-12 12:25 | Inpatient (IN) ==
[2020-06-12] MEDS ORDERED: NS 0.9% 1000 ml BAG 1,000 ML IV ONE (12:37)
[2020-06-12] MEDS ORDERED: Cefepime 2 GM in Dextrose 2 GM/50 ML BAG IV ONE (13:01)
[2020-06-12] MEDS ORDERED: metroNIDAZOLE IV 500 MG/100ML 500 MG/100 ML BAG IVPB ONE (13:20)
[2020-06-12 13:27] LABS: ABS Lymphocytes 0.3 10^3/ul (1.0-4.8); ABS Monocytes 0.5 10^3/ul (0-0.8); ABS Neutrophils 9.7 10^3/ul (1.5-7.7); Eosinophil % 0.1 %; Hematocrit 31 % (35-47); Hemoglobin 9.8 g/dL (12.0-16.0); Lymphocyte % 2.6 %; Mean Corpuscular HGB Conc 32 g/dL (31-36); Mean Corpuscular Hemoglobin 21 pg (27-31); Mean Corpuscular Volume 65 fL (80-97); Mean Platelet Volume 8.4 fL (7.4-10.4); Platelet Count 115 10^3/uL (150-450); Red Blood Count 4.69 10^6 /uL (3.70-4.87); Red Cell Distribution Width 17 % (10-15); White Blood Count 10.5 10^3/uL (3.5-10.8)
[2020-06-12 13:42] LABS: Albumin 4.1 g/dL (3.2-5.2); Albumin/Globulin Ratio 1.5 (1-3); C Reactive Protein 172.51 mg/L (<8.01); Calcium 8.9 mg/dL (8.6-10.3); EGFR African American 115.4 (>60); EGFR Non-African American 95.3 (>60); Globulin 2.8 g/dL (2-4); Potassium 3.6 mmol/L (3.5-5.0); Total Bilirubin 1.3 mg/dL (0.2-1.0); Total Protein 6.9 g/dL (6.4-8.9)
[2020-06-12] MEDS ORDERED: Ondansetron 4 mg VIAL 2 MG/ML 2 ml VIAL IV PRN (16:30)
[2020-06-12] MEDS ORDERED: Dextrose 50% Syringe 50 ml 25 GM/50 ML SYRINGE IV PUSH PRN (16:42)
[2020-06-12] MEDS: Aspirin EC 81 mg TAB.EC (enteric coated) PO SCH (20:21)
[2020-06-12] MEDS: Enoxaparin 40 MG/0.4 ML SYR SUBCUT SCH (20:23)
[2020-06-12] MEDS: Cefepime 2 GM in Dextrose 2 GM/50 ML BAG IV SCH (22:13)
[2020-06-13] MEDS: Cefepime 2 GM in Dextrose 2 GM/50 ML BAG IV SCH ×2 (05:11→12:06)
[2020-06-13 06:55] LABS: Anion Gap 8 mmol/L (2-11); BUN/Creatinine Ratio 22.4 (8-20); Blood Urea Nitrogen 15 mg/dL (6-24); CO2 Carbon Dioxide 23 mmol/L (22-32); Calcium 8.2 mg/dL (8.6-10.3); Chloride 101 mmol/L (101-111); EGFR African American 111.4 (>60); EGFR Non-African American 92.1 (>60); Glucose 165 mg/dL (70-100); Potassium 3.3 mmol/L (3.5-5.0); Sodium 132 mmol/L (135-145)
[2020-06-13 08:26] LABS: ABS Lymphocytes 0.6 10^3/ul (1.0-4.8); ABS Monocytes 0.5 10^3/ul (0-0.8); ABS Neutrophils 4.7 10^3/ul (1.5-7.7); Eosinophil % 0.4 %; Hematocrit 28 % (35-47); Hemoglobin 8.7 g/dL (12.0-16.0); Lymphocyte % 10.9 %; Mean Corpuscular HGB Conc 31 g/dL (31-36); Mean Corpuscular Hemoglobin 21 pg (27-31); Mean Corpuscular Volume 66 fL (80-97); Red Cell Distribution Width 17 % (10-15); White Blood Count 5.8 10^3/uL (3.5-10.8)
[2020-06-13 08:34] LABS: Mean Platelet Volume 8.7 fL (7.4-10.4); Platelet Count 97 10^3/uL (150-450)
[2020-06-13] MEDS: Aspirin EC 81 mg TAB.EC (enteric coated) PO SCH (08:38)
[2020-06-13] MEDS ORDERED: Potassium Chlor 20 meq TAB.ER PO ONE (10:36)
[2020-06-13 10:57] LABS: Total Iron Binding Capacity 414 mcg/dL (250-450); Transferrin 296 mg/dL (203-362)
[2020-06-13 10:59] LABS: % Iron Saturation 5 % (15-55); Iron < 20 ug/dL (50-212); Unsaturated Iron Binding < 399 ug/dL
[2020-06-13 11:17] LABS: Ferritin 23.8 ng/mL (11-307)
[2020-06-13] MEDS ORDERED: Perflutren Lipid Microsphere 3 ML VIAL ONE (15:35)
[2020-06-13] MEDS: Enoxaparin 40 MG/0.4 ML SYR SUBCUT SCH (16:10)
[2020-06-13] MEDS ORDERED: cefTRIAXone 1 gm/50 mL NS BAG 1 GM/50 ML BAG IVPB SCH (21:00)
[2020-06-13] MEDS ORDERED: Cefepime 2 GM in NS 0.9% 50 ML 50 ML IVPB SCH (21:00)
[2020-06-14 05:51] LABS: ABS Basophils 0.1 10^3/ul (0-0.2); ABS Eosinophils 0.2 10^3/ul (0-0.6); ABS Lymphocytes 1.2 10^3/ul (1.0-4.8); ABS Monocytes 0.6 10^3/ul (0-0.8); ABS Neutrophils 3.5 10^3/ul (1.5-7.7); Eosinophil % 3.4 %; Hematocrit 29 % (35-47); Lymphocyte % 21.4 %; Mean Corpuscular HGB Conc 31 g/dL (31-36); Mean Corpuscular Hemoglobin 21 pg (27-31); Mean Corpuscular Volume 66 fL (80-97); Mean Platelet Volume 8.7 fL (7.4-10.4); Platelet Count 107 10^3/uL (150-450); Red Blood Count 4.33 10^6 /uL (3.70-4.87); Red Cell Distribution Width 17 % (10-15); White Blood Count 5.5 10^3/uL (3.5-10.8)
[2020-06-14 06:06] LABS: BUN/Creatinine Ratio 23.5 (8-20); Calcium 8.4 mg/dL (8.6-10.3); EGFR African American 109.5 (>60); EGFR Non-African American 90.5 (>60); Potassium 3.8 mmol/L (3.5-5.0)
[2020-06-14] MEDS ORDERED: Furosemide 20 mg/2 ml IV VIAL IV SLOW PU ONE (09:00)
[2020-06-14] MEDS: Aspirin EC 81 mg TAB.EC (enteric coated) PO SCH (09:02)
[2020-06-14 13:39] VITALS: BP 100/62
== END 2020-06-14 14:30 | disposition home or self-care (01) | DRG 720 ==
LOC: ED 12:25 → MED 16:30
PROVIDERS: ADMIT Internal Medicine; ATTEND Internal Medicine